=== PATIENT | female | born 1935 | race Caucasian/White ===

== ENCOUNTER 2021-04-24 10:59 | Emergency (ER) | payer MEDICARE, BC, SELFPAY ==
--- NOTE | ~2021-04-24 | XR_ITS ---
EXAMINATION: XR wrist LT min 3V EXAM DATE: 04/24/2021 11:32 INDICATION: left wrist pain after lifting boxes. TECHNIQUE: Left wrist frontal, frontal with ulnar deviation, oblique and lateral projections obtained and reviewed. Comparison is made to prior examination from 10/24/2018. FINDINGS: Left wrist scapholunate joint space is maintained. There is severe 1st carpometacarpal, mod erate triscaphe primary osteoarthritis. There is moderate 1st and 3rd MCP primary osteoarthritis. Th ere is severe widening of the triscaphe joint space on the ulnar deviation image, and subluxation on other images. There is a juxta-articular well-defined punched-out erosion at the head of the left 1st phalanx, gout not excludable. There are no acute fractures identified. Polyarticular interphalangeal osteoarthritis. IMPRESSION: 1. Triscaphe joint space subluxation and widening indicating age-indeterminate ligamentous laxity or injury. 2. 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 3. Well-defined erosion 1st metacarpal head, possibly gout. 4. No left wrist fracture. Reviewed, dictated and finalized at location B.
[2021-04-24 11:12] VITALS: BP 126/70; PULSE 86; RESP 20; TEMP 36.8; O2SAT 98
--- NOTE | 2021-04-24 11:41 | ED.UPPEXIN ---
HPI - Extremity Injury (Upper) General Chief Complaint: Extremity Injury, Upper Stated Complaint: left wrist pain Time Seen by Provider: 04/24/21 11:10 Source: patient and RN notes reviewed Mode of arrival: ambulatory Limitations: no limitations History of Present Illness HPI narrative: Patient presents today complaining of left wrist pain. She was helping a family member move yesterday and was carrying boxes. She started experiencing some tingling in her fingers as well. She currently rates her pain 8/10. She applied a heating pad last night and states this made her pain worse. She has not tried any ice or [id number] medication for symptoms prior to arrival. Pain increases with movement. MD complaint: injury to: left and wrist Related Data Home Medications Medication Instructions Recorded Confirmed aspirin 81 mg tablet,delayed 81 mg PO DAILY 02/13/21 04/24/21 release ergocalciferol (vitamin D2) 50 mcg 50 mcg PO DAILY 02/13/21 04/24/21 (2,000 unit) capsule hydrochlorothiazide 12.5 mg tablet 12.5 mg PO DAILY 02/13/21 04/24/21 losartan 50 mg tablet 50 mg PO DAILY 02/13/21 04/24/21 meloxicam 7.5 mg tablet 7.5 mg PO BID 02/13/21 04/24/21 omeprazole 40 mg capsule,delayed 40 mg PO DAILY 02/13/21 04/24/21 release simvastatin 10 mg tablet 10 mg PO DAILY 02/13/21 04/24/21 vitamin B complex 1 tablet PO DAILY 02/13/21 04/24/21 Allergies Allergy/AdvReac Type Severity Reaction Status Date / Time grass pollen Allergy Mild Congested Verified 04/24/21 11:01 Review of Systems Review of Systems: Narrative: CONSTITUTIONAL: Denies body aches, fever, chills, or sweats. EYES: Denies visual changes, redness, or discharge. ENT: Denies rhinorrhea, congestion, sore throat, or otalgia. CARDIOVASCULAR: Denies chest pain, palpitations, or edema. RESPIRATORY: Denies cough or dyspnea. GASTROINTESTINAL: Denies abdominal pain, nausea, vomiting, or diarrhea. GENITOURINARY: Denies dysuria or hematuria. SKIN: Denies rash, itching, or wounds. MUSCULOSKELETAL: Denies back pain, or myalgia. + Left wrist injury NEUROLOGIC: Denies headache, numbness, tingling, or weakness. PSYCH: Denies depression or anxiety. [facility] Past Medical History Medical History Arthritis of both knees History of cyst of breast 1979 Hypertension Osteoporosis Scoliosis Family History Family History Daughter Cancer Arthritis Son Kidney disease Social History Social History Gender identity (if verbalized by the patient): Female Comments At time of signature, I have reviewed and agree with nursing past medical, surgical, social and family history unless otherwise noted. Please see nursing chart for further information. There is no relevant family history pertinent to the presenting complaint Exam Narrative: Exam Narrative: GENERAL: Well-appearing, well-nourished, and in no acute distress. HEAD: Normocephalic, atraumatic. EYES: EOMI. No redness or drainage. Conjunctivae normal. ENT: Mucous membranes pink and moist. NECK: Normal AROM. CHEST: No respiratory distress. EXTREMITIES: Left wrist: Mild swelling about the wrist. No bony tenderness. Mild erythema noted to the volar surface of the proximal wrist. Pain increases most severely with extension and supination. Distal sensation intact. Capillary refill normal. Radial pulse normal. SKIN: Warm, dry, no rash. Capillary refill normal. Normal skin turgor. NEURO: No focal deficits. Alert and oriented x3. Gait steady. PSYCH: Normal affect. No signs of depression or anxiety. Course Vital Signs Vital signs: Vital Signs Temperature 98.2 F 04/24/21 11:12 Pulse Rate 86 04/24/21 11:12 Respiratory Rate 20 04/24/21 11:12 Blood Pressure 126/70 04/24/21 11:12 Pulse Oximetry 98 04/24/21 11:12 Te
== END 2021-04-24 11:50 | disposition home or self-care (01) ==
PROVIDERS: Emergency Provider Nurse Practitioner; PCP Nurse Practitioner Adult Health
DX: S63.502A Unspecified sprain of left wrist, initial encounter (principal); X50.0XXA Overexertion from strenuous movement or load, initial encounter; M17.0 Bilateral primary osteoarthritis of knee; I10 Essential (primary) hypertension; M81.0 Age-related osteoporosis without current pathological fracture; M41.9 Scoliosis, unspecified
CPT/HCPCS: 73110; 99213; G0463

== ENCOUNTER 2022-02-07 09:57 | Emergency (ER) | payer MEDICARE, BC, SELFPAY ==
--- NOTE | ~2022-02-07 | XR_ITS ---
EXAMINATION: XR hip BI 2V w AP pelvis DATE: 02/07/2022 11:05 INDICATION: Pelvic pain. Fall. TECHNIQUE: An anteroposterior view of the pelvis and 2 views of each hip were obtained. COMPARISON: Pelvis radiograph 06/17/2019 FINDINGS: There is dextroscoliosis and mild spondylosis of lumbar spine. No fracture. There is mild o steoarthritis of the hips. Osteitis pubis is noted. IMPRESSION: 1. Mild osteoarthritis of the hips. Reviewed, dictated and finalized at location A.
--- NOTE | ~2022-02-07 | CT_ITS ---
EXAMINATION: CT brain wo con DATE: 02/07/2022 10:55 INDICATION: Head injury TECHNIQUE: Computed tomography (CT) of the head was performed without intravenous contrast. The dose- length product was 605.33 mGy-cm. Automated exposure control and iterative reconstruction technique w ere employed. COMPARISON: No prior studies for comparison. FINDINGS: Mild atrophy. There are scattered mild periventricular and subcortical white matter changes , most likely related to small vessel ischemic disease (microangiopathy). No ventriculomegaly or midl ine shift. Basilar cisterns are patent. No depressed skull fractures. Paranasal sinuses and mastoids are pneumatized. IMPRESSION: 1. No acute intracranial abnormality. 2: Chronic age-related findings. Reviewed, dictated and finalized at location B.
--- NOTE | ~2022-02-07 | XR_ITS ---
EXAMINATION: XR chest 2V DATE: 02/07/2022 11:05 INDICATION: Dizziness. TECHNIQUE: Frontal and lateral views of the chest were obtained. COMPARISON: Chest single view 05/08/2014 FINDINGS: A calcified right lung nodule is consistent with old granulomatous disease. No pneumonia, p leural effusion, or pneumothorax. The heart size is normal. There are old healed fractures of the cla vicles. IMPRESSION: 1. No acute cardiopulmonary disease. Reviewed, dictated and finalized at location A.
[2022-02-07 10:00] VITALS: BP 152/69; PULSE 79; RESP 18; TEMP 36.2; O2SAT 99
--- NOTE | 2022-02-07 10:03 | ECG_ITS ---
Measurements Intervals [place] Rate: 75 P: 39 IA: 156 QRS: 72 QRSD: 131 T: 36 QT: 384 QTc: 430 Interpretive Statements SINUS RHYTHM RIGHT BUNDLE BRANCH BLOCK [120+ ms QRS DURATION, UPRIGHT V1, 40+ ms S IN I/aVL/V4/V5/V6] NO PREVIOUS ECG AVAILABLE FOR COMPARISON Electronically Signed On 02-07-2022 16:11:11 CDT by Rajiv Lange M.D.
[2022-02-07 10:18] LABS: Basophils Percent Auto 0.1 % (0.2-1.2); Eosinophils Percent Auto 0.5 % (0-4.4); Hematocrit 38.9 % (37.0-47.0); Hemoglobin 12.2 g/dL (12.0-15.0); Immature Granulocyte Absolute 0.02 K/mm3 (0.00-0.031); Immature Granulocyte Percent A 0.3 % (0-0.5); Lymphocytes Absolute Auto 0.86 K/mm3 (0.9-3.2); Lymphocytes Percent Auto 10.9 % (18.3-44.2); Mean Corpuscular HGB Conc 31.4 g/dl (32-36); Mean Corpuscular Hemoglobin 27.6 pg (26-34); Mean Platelet Volume 9.1 fl (7.4-10.4); Monocytes Absolute Auto 0.6 K/mm3 (0.1-0.6); Monocytes Percent Auto 7.3 % (2.6-8.5); Neutrophils Absolute Auto 6.4 K/mm3 (1.3-6.7); Neutrophils Percent Auto 80.9 % (45.5-73.1); Platelet Count Result 375 k/mm3 (150-375); Red Blood Count 4.42 M/mm3 (4.2-5.4); Red Cell Distribution Width 13.5 % (11.5-14.5); White Blood Count 7.9 K/mm3 (4.5-10.0)
[2022-02-07 10:28] LABS: Alanine Aminotransferase 14 U/L (4-35); Albumin Level 3.9 g/dL (3.5-5.1); Alkaline Phosphatase 84 U/L (38-126); Anion Gap 9 mmol/L (8-16); Aspartate Amino Transferase 37 U/L (14-36); Bilirubin,Total 0.5 mg/dL (0.2-1.3); Blood Urea Nitrogen 14 mg/dL (7-17); Calcium 8.7 mg/dL (8.4-10.2); Carbon Dioxide 22 mmol/L (22-30); Chloride 104 mmol/L (98-107); Estimated CRCL calculation 43 ml/min; Estimated Glomerular Filt Rate > 60; Glucose 106 mg/dL (65-110); Potassium 4.4 mmol/L (3.4-5.0); Sodium 135 mmol/L (137-145)
--- NOTE | 2022-02-07 10:48 | ED.DIZZY ---
HPI - Dizziness General Chief Complaint: Dizziness Stated Complaint: Dizzy Time Seen by Provider: 02/07/22 10:24 Source: patient Mode of arrival: EMS Limitations: no limitations History of Present Illness HPI Narrative: This is a 86 year old female that presents to the ER for episode of dizziness today. Reports she got up this morning and had some mild dizziness. She was able to continue to make a cup of coffee and watched some TV. She went into her room and started to feel worsening room spinning dizziness which made her fall. Reports she mostly able to lower herself to the floor. She did hit her head on a chest of drawers. Reports her dizziness has largely resolved. She now feels generally weak. Denies fever, vision changes, vomiting, numbness or weakness. Related Data Home Medications Medication Instructions Recorded Confirmed aspirin 81 mg tablet,delayed 81 mg PO DAILY 02/13/21 10/09/21 release hydrochlorothiazide 12.5 mg tablet 12.5 mg PO DAILY 02/13/21 10/09/21 losartan 50 mg tablet 50 mg PO DAILY 02/13/21 10/09/21 meloxicam 7.5 mg tablet 7.5 mg PO BID 02/13/21 10/09/21 simvastatin 10 mg tablet 10 mg PO DAILY 02/13/21 10/09/21 vitamin B complex 1 tablet PO DAILY 02/13/21 10/09/21 omeprazole 40 mg capsule,delayed 40 mg PO DAILY PRN 10/09/21 10/09/21 release Allergies Allergy/AdvReac Type Severity Reaction Status Date / Time grass pollen Allergy Mild Congested Verified 10/09/21 09:22 Review of Systems Review of Systems: CONSTITUTIONAL: Denies fever EYES: Denies visual changes CARDIOVASCULAR: Denies chest pain, palpitations RESPIRATORY: Denies dyspnea. GASTROINTESTINAL: Denies vomiting NEUROLOGIC: Denies numbness, or weakness. All systems reviewed & are unremarkable except as noted in HPI and below PMFSH Past Medical History Medical History Arthritis of both knees History of cyst of breast 1979 Hypertension Osteoporosis Scoliosis Family History Family History Daughter Cancer Arthritis Son Kidney disease Social History Social History (Updated 02/07/22 @ 10:53 by Camelia Cherry PA-C) Smoking status: Never smoker Gender identity (if verbalized by the patient): Female Exam Narrative: GENERAL: Well-appearing, well-nourished, and in no acute distress. HEAD: Normocephalic, atraumatic. EYES: PERRLA and EOMI. ENT: Nares clear, no rhinorrhea or epistaxis. Mucous membranes moist. Oropharynx without tonsillar hypertrophy exudate or other lesions. Bilateral TMs pearly lawson non-bulging NECK: Supple. No adenopathy or masses. No midline spinal tenderness CHEST: Clear to auscultation. No respiratory distress. No wheezes rales or rhonchi HEART: Regular rate and rhythm. No murmur heard. Normal peripheral pulses. BACK: No midline spinal tenderness EXTREMITIES: Normal range of motion. No edema or obvious deformity. SKIN: Warm, dry, no rash. NEURO: No focal deficits. Alert and oriented x3. Cranial nerves II through XII grossly intact. Normal [id number] PSYCH: Normal mood and affect Course Vital Signs Vital signs: Vital Signs Temperature 97.1 F L 02/07/22 10:00 Pulse Rate 79 02/07/22 10:00 Respiratory Rate 18 02/07/22 10:00 Blood Pressure 152/69 H 02/07/22 10:00 Pulse Oximetry 99 02/07/22 10:00 Temperature 97.1 F L 02/07/22 10:00 Pulse Rate 72 02/07/22 11:50 Respiratory Rate 19 02/07/22 11:50 Blood Pressure 136/60 02/07/22 11:50 Pulse Oximetry 94 02/07/22 11:50 MDM - Dizziness MDM Narrative Medical decision making narrative: Patient presents to the ER for an episode of dizziness today. Her vitals are stable. She is neurologically intact. CBC and metabolic panel without concerning findings. UA without evidence of infection. Chest x-ray without acute cardiopulmonary abnormality. EKG without concerning ST changes. Patient denies any chest p
[2022-02-07 10:59] LABS: Creatine Kinase 34 U/L (30-135)
[2022-02-07] MEDS: SODIUM CHLORIDE 0.9% IV 500 ML 999 ML IV CONT (11:47)
[2022-02-07] MEDS: ONDANSETRON INJ 4 MG/2 ML VIAL IV PUSH (11:48)
[2022-02-07] MEDS: MECLIZINE HCL 25 MG TABLET PO (11:48)
[2022-02-07 11:49] LABS: Add Urine Microscopic? YES; Appearance Urine Cloudy (Clear); Bilirubin Urine Negative (Negative); Blood Urine 1+ (Negative); Color Urine Yellow (Yellow); Glucose Urine UA Negative (Negative); Ketones Urine Negative (Negative); Leukocyte Esterase Ur Trace LEU/UL (Negative); Nitrate Urine Negative (Negative); Protein Urine Negative (Negative); Specific Grav Ur 1.012 (1.001-1.035); Squamous Epithelial Cell Urine Few /hpf (Few); WBC Urine 0-3 /hpf
[2022-02-07 11:50] VITALS: BP 136/60; PULSE 72; RESP 19; O2SAT 94
[2022-02-07 14:28] VITALS: BP 164/83; PULSE 83; RESP 13; TEMP 37; O2SAT 100
== END 2022-02-07 14:43 | disposition home or self-care (01) ==
PROVIDERS: Physician Assistant; Emergency Provider Emergency Medicine; PCP Nurse Practitioner Adult Health
DX: R42 Dizziness and giddiness (principal); M17.0 Bilateral primary osteoarthritis of knee; I10 Essential (primary) hypertension; M81.0 Age-related osteoporosis without current pathological fracture; M16.0 Bilateral primary osteoarthritis of hip; I45.10 Unspecified right bundle-branch block; Z79.82 Long term (current) use of aspirin
CPT/HCPCS: 36415; 70450; 71046; 73521; 80053; 81001; 82550; 85025; 93005; 96361; 96374; 99284; A9270; J2405; J7040

== ENCOUNTER 2022-03-26 09:16 | Observation (INO) | payer MEDICARE, BC, SELFPAY ==
[2022-03-26] VITALS (27 sets, daily range): BP systolic 130–177; BP diastolic 53–102; PULSE 68–84; RESP 13–20; TEMP 36.3–37.1; O2SAT 95–100; BMI 27.6
--- NOTE | ~2022-03-26 | XR_ITS ---
EXAMINATION: XR chest 2V DATE: 03/26/2022 12:07 INDICATION: Dizziness. Weakness. TECHNIQUE: Frontal and lateral views of the chest were obtained. COMPARISON: Chest 2 views 02/07/2022, CT abdomen and pelvis 06/09/2015 FINDINGS: There is interstitial pattern in the lungs. No pleural effusion or pneumothorax. The heart size is normal. There is an old healed fracture of left clavicle. IMPRESSION: 1. Interstitial pattern in the lungs, consistent with mild pulmonary edema versus mild atelectasis. Reviewed, dictated and finalized at location B. IMPRESSION: 1. Interstitial pattern in the lungs, consistent with mild pulmonary edema vers us mild atelectasis.
--- NOTE | ~2022-03-26 | CT_ITS ---
EXAMINATION: CT brain wo con DATE: 03/26/2022 11:02 INDICATION: Dizziness. TECHNIQUE: Computed tomography (CT) of the head was performed without intravenous contrast. The mA wa s adjusted according to patient size. Iterative reconstruction technique was employed. The dose-lengt h product was 605.33 mGy-cm. COMPARISON: Head CT 02/07/2022 FINDINGS: There are scattered areas of low attenuation in the cerebral white matter. There is no intr acranial hemorrhage, acute infarction, or abnormal intracranial mass lesion. The ventricles are richar l in size. There are likely changes of ocular lens replacement surgeries. There is mild mucosal thick ening in the ethmoid sinuses. There are trace mastoid effusions. IMPRESSION: 1. Stable moderate nonspecific cerebral white matter disease, which likely represents chronic small v essel ischemic disease. Reviewed, dictated and finalized at location B. IMPRESSION: 1. Stable moderate nonspecific cerebral white matter disease, which likely repr esents chronic small vessel ischemic disease.
--- NOTE | 2022-03-26 09:18 | ECG_ITS ---
Measurements Intervals [place] Rate: 60 P: 54 MI: 180 QRS: 79 QRSD: 138 T: 35 QT: 426 QTc: 429 Interpretive Statements SINUS RHYTHM RIGHT BUNDLE BRANCH BLOCK BASELINE ARTIFACT- II, III, AVF ABNORMAL ECG Electronically Signed On 03-26-2022 9:57:03 CDT by Humberto Aly D.O.
[2022-03-26 09:51] LABS: Basophils Percent Auto 0.2 % (0.2-1.2); Eosinophils Absolute Auto 0.1 K/mm3 (0-0.3); Eosinophils Percent Auto 0.8 % (0-4.4); Hematocrit 37.3 % (37.0-47.0); Hemoglobin 11.7 g/dL (12.0-15.0); Immature Granulocyte Absolute 0.03 K/mm3 (0.00-0.031); Immature Granulocyte Percent A 0.3 % (0-0.5); Lymphocytes Absolute Auto 1.12 K/mm3 (0.9-3.2); Lymphocytes Percent Auto 12.4 % (18.3-44.2); Mean Corpuscular HGB Conc 31.4 g/dl (32-36); Mean Corpuscular Hemoglobin 27.3 pg (26-34); Mean Corpuscular Volume 87.1 fl (80-100); Mean Platelet Volume 9.5 fl (7.4-10.4); Monocytes Absolute Auto 0.6 K/mm3 (0.1-0.6); Monocytes Percent Auto 6.5 % (2.6-8.5); Neutrophils Absolute Auto 7.2 K/mm3 (1.3-6.7); Neutrophils Percent Auto 79.8 % (45.5-73.1); Platelet Count Result 383 k/mm3 (150-375); Red Blood Count 4.28 M/mm3 (4.2-5.4); Red Cell Distribution Width 13.9 % (11.5-14.5)
[2022-03-26 10:01] LABS: Alanine Aminotransferase 11 U/L (4-35); Albumin Level 3.7 g/dL (3.5-5.1); Alkaline Phosphatase 89 U/L (38-126); Anion Gap 9 mmol/L (8-16); Aspartate Amino Transferase 24 U/L (14-36); Bilirubin,Total 0.2 mg/dL (0.2-1.3); Blood Urea Nitrogen 13 mg/dL (7-17); Calcium 8.8 mg/dL (8.4-10.2); Carbon Dioxide 23 mmol/L (22-30); Chloride 104 mmol/L (98-107); Estimated CRCL calculation 43 ml/min; Estimated Glomerular Filt Rate > 60; Glucose 118 mg/dL (65-110); Potassium 4.1 mmol/L (3.4-5.0); Sodium 136 mmol/L (137-145)
--- NOTE | 2022-03-26 10:31 | ED.DIZZY ---
HPI - Dizziness General Chief Complaint: Dizziness Stated Complaint: dizzy Time Seen by Provider: 03/26/22 10:10 History of Present Illness HPI Narrative: 86-year-old female presents to the emergency room cute onset of dizziness that began this morning when she woke up. Patient states that dizziness is worse with movement. Denies injury or trauma. Denies nausea vomiting. Denies vision or hearing changes. Patient also complains of increased weakness. Patient states that she was seen here in the emergency room in January for same complaint. Patient was given meclizine at that time which she says helped her symptoms. Patient states that she refuses to take any more meclizine because she read on the adverse reactions of the medication that it could cause dizziness, and she is afraid that her dizziness will be made worse with the meclizine. Patient is under the care of a neurologist at this time. Patient also reports that she was abruptly taken off of primidone over a month ago, and her neurologist is slowly increasing her dose over the last couple of weeks. Patient states that the primidone may be causing her dizziness as well Related Data Home Medications Medication Instructions Recorded Confirmed aspirin 81 mg tablet,delayed 81 mg PO DAILY 02/13/21 10/09/21 release hydrochlorothiazide 12.5 mg tablet 12.5 mg PO DAILY 02/13/21 10/09/21 losartan 50 mg tablet 50 mg PO DAILY 02/13/21 10/09/21 meloxicam 7.5 mg tablet 7.5 mg PO BID 02/13/21 10/09/21 simvastatin 10 mg tablet 10 mg PO DAILY 02/13/21 10/09/21 vitamin B complex 1 tablet PO DAILY 02/13/21 10/09/21 omeprazole 40 mg capsule,delayed 40 mg PO DAILY PRN 10/09/21 10/09/21 release Allergies Allergy/AdvReac Type Severity Reaction Status Date / Time grass pollen Allergy Mild Congested Verified 03/26/22 09:29 Review of Systems Review of Systems: CONSTITUTIONAL: Denies fever, chills, or sweats. EYES: Denies visual changes, redness, or discharge. ENT: Denies rhinorrhea, congestion, sore throat, or otalgia. CARDIOVASCULAR: Denies chest pain, palpitations, or edema. RESPIRATORY: Denies cough or dyspnea. GASTROINTESTINAL: Denies abdominal pain, nausea, vomiting, or diarrhea. GENITOURINARY: Denies dysuria or hematuria. SKIN: Denies rash or itching. MUSCULOSKELETAL: Denies back pain, joint pain, or myalgia. NEUROLOGIC: Reports dizziness and weakness PSYCHIATRIC: Denies anxiety or depression. [facility] Past Medical History Medical History Arthritis of both knees History of cyst of breast 1979 Hypertension Osteoporosis Scoliosis Family History Family History Daughter Cancer Arthritis Son Kidney disease Social History Social History Smoking status: Never smoker Gender identity (if verbalized by the patient): Female Exam Narrative: GENERAL: Well-appearing, well-nourished, and in no acute distress. HEAD: Normocephalic, atraumatic. EYES: PERRLA and EOMI. CHEST: Clear to auscultation. No respiratory distress. No wheezes rales or rhonchi HEART: Regular rate and rhythm. No murmur heard. Normal peripheral pulses. ABDOMEN: Soft, nontender, nondistended, normal active bowel sounds. EXTREMITIES: Normal range of motion. No edema. SKIN: Warm, dry, no rash. NEURO: No focal deficits. Alert and oriented x3. Cranial nerves II through XII grossly intact. PSYCH: Normal mood and affect. Course Vital Signs Vital signs: Vital Signs Temperature 36.3 C L 03/26/22 09:22 Pulse Rate 68 03/26/22 09:22 Respiratory Rate 14 03/26/22 09:22 Blood Pressure 169/67 H 03/26/22 09:22 Pulse Oximetry 100 03/26/22 09:22 Temperature 36.3 C L 03/26/22 09:22 Pulse Rate 83 03/26/22 11:55 Respiratory Rate 16 03/26/22 11:55 Blood Pressure 158/102 H 03/26/22 11:55 Pulse Oximetry 98 03/26/22 11:55
[2022-03-26] MEDS: MECLIZINE HCL 25 MG TABLET PO (10:41)
[2022-03-26] MEDS: SODIUM CHLORIDE 0.9% IV 1,000 ML 999 ML IV CONT (10:43)
[2022-03-26 12:47] LABS: Troponin I < 0.012 ng/mL (0.000-0.034)
[2022-03-26 14:21] LABS: SARS-CoV-2 RNA PCR Negative
--- NOTE | 2022-03-26 14:43 | PC.NURSE ---
This patient, Joann Mckinley, was admitted to [facility]. Patient/family oriented to hospital policies and general routines including ID bracelet, bed and alarms, visiting hours, pain management, procedures, bathroom and other care routines, personal items, smoking policy, room service/diet, and visiting hours. Information on how to activate the Rapid Response Team has been discussed. Patient/Family are encouraged to report perceived risks to care and to ask questions if they do not understand what they are told or what they should do.
--- NOTE | 2022-03-26 15:36 | PC.NURSE ---
reported elevated bp to [facility] provider, pt didn't take losartan 50 mg po /
[2022-03-26 16:19] LABS: Troponin I < 0.012 ng/mL (0.000-0.034)
[2022-03-26] MEDS: LOSARTAN POTASSIUM 50 MG TABLET PO (16:21)
[2022-03-26] MEDS: ACETAMINOPHEN 325 MG TABLET 650 MG PO (18:54)
--- NOTE | 2022-03-26 23:15 | PM.IMHP ---
H&P: HPI History of Present Illness Date/Time: Greater than 30 minutes spent reviewing chart, evaluating, treating, counseling patient. Anticipate patient will be admitted for less than 48 hours, will admit under observation. 03/26/22 23:15 86 yo F PMHx of HTN, essential tremors. Presents with dizziness. States this started in January; had an episode of dizziness while getting ready in the AM when all of a sudden she felt like she was spinning. Was so bad that she fell. She went to the ED at that time and was given meclizine, which she states helped. Patient went to sweet pickled fruit maker more meclizine from the pharmacy, but after the reading the package insert she decided not to take it because it could potentially make her dizziness worse. Patient has been evaluated by her PCP in the past, and they suspected potentially her primidone may be causing her dizziness. Today patient was laying in bed when she began to feel dizzy like her head was spinning. She states this improved slightly, but then when she went to get coffee in her kitchen she had another spell. She then had another spell when going to the couch, which prompted her to come to the ED. Patient denies fevers/chills, CP, palpitations, SOB, n/v/d/c, dysuria, hematuria, blood in stool. Denies blurry vision or change in vision. Denies ear pain, drainage, tinnitus, difficulty hearing. Denies sore throat. In ED labs unremarkable. Head CT showing stable nonspecific cerebral white matter disease c/w chronic small vessel ischemic disease. Patient was given 1 L NS bolus. Chief Complaint: Dizziness Review of Systems Review of Systems: 10 point ROS completed, negative unless otherwise specified per HPI [facility] Past Medical History Medical History (Updated 03/26/22 @ 23:29 by Paul Alamo DO) Arthritis of both knees History of cyst of breast 1979 Hypertension Osteoporosis Scoliosis Family History Family History Daughter Cancer Arthritis Son Kidney disease Social History Social History Smoking status: Never smoker Alcohol intake: never Substance use: never Gender identity (if verbalized by the patient): Female Spiritual care concerns: No Meds Home Medications and Allergies Home Medications Medication Instructions Recorded Confirmed Type aspirin 81 mg tablet,delayed 81 mg PO DAILY 02/13/21 03/26/22 History release losartan 50 mg tablet 50 mg PO DAILY 02/13/21 03/26/22 History simvastatin 10 mg tablet 10 mg PO DAILY 02/13/21 03/26/22 History omeprazole 40 mg capsule,delayed 40 mg PO DAILY PRN 10/09/21 03/26/22 History release celecoxib 200 mg PO DAILY 03/26/22 03/26/22 History cyanocobalamin (vitamin B-12) 1,000 mcg PO DAILY 03/26/22 03/26/22 History meclizine 25 mg PO TID PRN 03/26/22 03/26/22 History primidone 50 mg PO DAILY 03/26/22 03/26/22 History Allergies Allergy/AdvReac Type Severity Reaction Status Date / Time grass pollen Allergy Mild Congested Verified 03/26/22 09:29 Vital Signs Vital Signs - 24 hr 03/26/22 09:22 03/26/22 09:41 03/26/22 09:45 Temperature 97.4 F L Pulse Rate 68 70 73 Respiratory Rate 14 20 17 Blood Pressure 169/67 H Pulse Oximetry 100 100 98 03/26/22 09:47 03/26/22 10:00 03/26/22 10:02 Temperature Pulse Rate 68 72 78 Respiratory Rate 17 13 13 Blood Pressure 140/67 139/86 Pulse Oximetry 99 99 95 03/26/22 10:15 03/26/22 10:17 03/26/22 10:30 Temperature Pulse Rate 74 75 71 Respiratory Rate 17 14 19 Blood Pressure 145/75 H Pulse Oximetry 97 96 100 03/26/22 10:32 03/26/22 11:06 03/26/22 11:55 Temperature Pulse Rate 70 80 83 Respiratory Rate 14 16 Blood Pressure 166/69 H 158/102 H Pulse Oximetry 99 97 98 03/26/22 12:16 03/26/22 12:30 03/26/22 12:45 Temperature Pulse Rate 76 80 79 Respiratory Rate 17 17 15 Blood Pressure Pulse Oximetry 99 100 99 03/26/22
[2022-03-27] VITALS (12 sets, daily range): BP systolic 142–175; BP diastolic 58–79; PULSE 73–81; RESP 16–19; TEMP 36–37.1; O2SAT 96–97
--- NOTE | 2022-03-27 | ECHO_ITS ---
Patient Info Name: Joann Mckinley Age: 86 years : 1935 Gender: Female Ht: 60 in Wt: 141 lbs BSA: 1.67 m2 HR: 71 bpm BP: 142 / 58 mmHg Heart Rhythm: Sinus Rhythm Technical Quality: Fair Exam Date: 03/27/2022 8:38 AM Exam Location: [facility] Pulmonary Patient Status: Outpatient Admit Date: 03/26/2022 Staff Ordering Physician: Paul Alamo DO Route Agent: Tere Nguyen RDCS Attending Provider: Fab Reddy M.A., MD Exam Type: CA echo doppler color flow Study Info Indications R42 - Dizziness and giddiness Complete two-dimensional, color flow and Doppler transthoracic echocardiogram is performed. Strain analysis performed. Summary 1. Complete two-dimensional, color flow and Doppler transthoracic echocardiogram is performed. 2. Strain analysis performed. 3. Left ventricular chamber dimension is normal. 4. Left ventricular systolic function is normal, estimated at 65-70%. 5. There is no increased left ventricular wall thickness. 6. The left ventricular diastolic function is grade I diastolic dysfunction. 7. Global longitudinal strain is normal at -19 %. 8. Left atrial chamber dimension is mildly enlarged. 9. There is mild aortic valve regurgitation. 10. There is mild mitral valve regurgitation. 11. There is mild tricuspid valve regurgitation. 12. Mild pulmonary hypertension, estimated pulmonary arterial systolic pressure is 39 mmHg. Left Ventricle Left ventricular chamber dimension is normal. Left ventricular systolic function is normal, estimated at 65-70%. There is no increased left ventricular wall thickness. The left ventricular diastolic function is grade I diastolic dysfunction. Global longitudinal strain is normal at -19 %. Right Ventricle Right ventricular chamber dimension is normal. Right ventricular systolic function is normal. Left Atria Left atrial chamber dimension is mildly enlarged. Right Atria Right atrial chamber dimension is normal. Atrial Septum Intact interatrial septum visualized by color flow imaging. Aortic Valve The aortic valve is trileaflet. There is mild aortic valve sclerosis. There is no aortic valve stenosis. There is mild aortic valve regurgitation. Pulmonic Valve The pulmonic valve is normal. There is no pulmonic valve stenosis. There is trace pulmonic regurgitation. Mitral Valve The mitral valve has normal leaflets. There is no mitral valve stenosis. There is mild mitral valve regurgitation. Tricuspid Valve The tricuspid valve leaflets are normal. There is no significant tricuspid valve stenosis. There is mild tricuspid valve regurgitation. Mild pulmonary hypertension, estimated pulmonary arterial systolic pressure is 39 mmHg. Pericardium/Pleural The pericardium appears normal. There is no pericardial effusion. Inferior Vena Cava Normal inferior vena cava with <50% collapse upon inspiration consistent with elevated right atrial pressure, 10 mmHg. Aorta The aortic root size at the sinus of Valsalva is normal. Left Ventricular Outflow Tract Name Value Normal LVOT 2D LVOT Diameter 1.9 cm LVOT Doppler LVOT
[2022-03-27 06:36] LABS: Basophils Percent Auto 0.2 % (0.2-1.2); Eosinophils Absolute Auto 0.1 K/mm3 (0-0.3); Hematocrit 38.4 % (37.0-47.0); Hemoglobin 11.9 g/dL (12.0-15.0); Immature Granulocyte Absolute 0.02 K/mm3 (0.00-0.031); Immature Granulocyte Percent A 0.3 % (0-0.5); Lymphocytes Absolute Auto 1.43 K/mm3 (0.9-3.2); Lymphocytes Percent Auto 22.4 % (18.3-44.2); Mean Corpuscular Hemoglobin 27.3 pg (26-34); Mean Corpuscular Volume 88.1 fl (80-100); Mean Platelet Volume 9.2 fl (7.4-10.4); Monocytes Absolute Auto 0.5 K/mm3 (0.1-0.6); Monocytes Percent Auto 8.2 % (2.6-8.5); Neutrophils Absolute Auto 4.3 K/mm3 (1.3-6.7); Neutrophils Percent Auto 66.9 % (45.5-73.1); Platelet Count Result 361 k/mm3 (150-375); Red Blood Count 4.36 M/mm3 (4.2-5.4); Red Cell Distribution Width 13.8 % (11.5-14.5); White Blood Count 6.4 K/mm3 (4.5-10.0)
[2022-03-27 06:57] LABS: Alanine Aminotransferase 11 U/L (4-35); Albumin Level 3.7 g/dL (3.5-5.1); Alkaline Phosphatase 81 U/L (38-126); Anion Gap 6 mmol/L (8-16); Aspartate Amino Transferase 23 U/L (14-36); Bilirubin,Total 0.2 mg/dL (0.2-1.3); Blood Urea Nitrogen 11 mg/dL (7-17); Calcium 8.7 mg/dL (8.4-10.2); Carbon Dioxide 24 mmol/L (22-30); Chloride 108 mmol/L (98-107); Estimated CRCL calculation 38 ml/min; Estimated Glomerular Filt Rate > 60; Glucose 102 mg/dL (65-110); Sodium 138 mmol/L (137-145)
[2022-03-27] MEDS: LOSARTAN POTASSIUM 50 MG TABLET PO (09:36)
[2022-03-27] MEDS: CYANOCOBALAMIN 1,000 MCG TABLET 1000 MCG PO (09:36)
[2022-03-27] MEDS: CELECOXIB 200 MG CAPSULE PO (09:36)
[2022-03-27] MEDS: ACETAMINOPHEN 325 MG TABLET 650 MG PO (09:36)
[2022-03-27] MEDS: ENOXAPARIN 40 MG/0.4 ML SYRINGE SUB-Q (09:37)
[2022-03-27] MEDS: PRIMIDONE 25 MG TABLET PO (09:37)
[2022-03-27] MEDS: SIMVASTATIN 10 MG TABLET PO (09:37)
--- NOTE | 2022-03-27 09:40 | PC.NURSE ---
pt takes aspirin at bedtime at home and would like to take it that way here, message left for pharm
--- NOTE | 2022-03-27 11:15 | PM.IMPN ---
Progress Note: A&P Assessment and Plan (1) Dizziness: Code(s): R42 - Dizziness and giddiness Status: Acute Assessment and Plan: ECHO pending Telemonitor shows SR with PVCs orthostatic ordered Laying, sitting, standing TSH 3.130 ENT c/s however, they are not here this week, will need an outpatient appointment at discharge Meclizine prn Decrease primidone dose as well Right ear irrigation performed, wax built up (2) Hypertension: Code(s): I10 - Essential (primary) hypertension Status: Inactive Assessment and Plan: Current BP 142/58 Continue losartan Trend Blood pressure Adjust therapy as indicated (3) Essential tremor: Code(s): G25.0 - Essential tremor Status: Acute Assessment and Plan: Continue primidone at reduced dose. Monitor for symptoms Time Spent With Patient Time with patient: Greater than 35 minutes Subjective Date/time seen: 03/27/22 11:15 Interval history: 03/26/22 23:15 86 yo F PMHx of HTN, essential tremors. Presents with dizziness. States this started in January; had an episode of dizziness while getting ready in the AM when all of a sudden she felt like she was spinning. Was so bad that she fell. She went to the ED at that time and was given meclizine, which she states helped. Patient went to bean picker more meclizine from the pharmacy, but after the reading the package insert she decided not to take it because it could potentially make her dizziness worse. Patient has been evaluated by her PCP in the past, and they suspected potentially her primidone may be causing her dizziness. Today patient was laying in bed when she began to feel dizzy like her head was spinning. She states this improved slightly, but then when she went to get coffee in her kitchen she had another spell. She then had another spell when going to the couch, which prompted her to come to the ED. Patient denies fevers/chills, CP, palpitations, SOB, n/v/d/c, dysuria, hematuria, blood in stool. Denies blurry vision or change in vision. Denies ear pain, drainage, tinnitus, difficulty hearing. Denies sore throat. In ED labs unremarkable. Head CT showing stable nonspecific cerebral white matter disease c/w chronic small vessel ischemic disease. Patient was given 1 L NS bolus. 03/27/22 11:15 Patient stated that she was feeling tired. She also stated that her head movements did not make a difference when she was getting dizzy. She did state that she gets dizzy with any major movement. She also states that she usually sits back and relaxes which that helps clear it up. She stated that she has been having dizziness which is worse since January. Patient stated she has been tired lately. However she denies any chest pain, shortness her breath, nausea, vomiting, diarrhea, constipation, weakness or fatigue. I did look into the patient's ears which showed she did have right-sided blockage. I did irrigate the patient's ear and her dizziness seems to be better. Review of Systems Review of Systems: All systems reviewed & are unremarkable except as noted in HPI and below Exam Const: General: cooperative, healthy appearing, no acute distress, well developed, alert and awake Nutritional Appearance: well nourished Orientation/consciousness: patient oriented x3 Limitations: no limitations HENMT: Head: normal to inspection Ears: hearing grossly normal bilaterally General nose exam: Normal external nose present Mouth: Yes Normal oral and palatal mucosa present, Yes lip normal and Yes tongue normal Teeth and gingiva: abnormal tooth and associated gingiva and poor dentition Eyes: General: appearance normal, both eyes and all related structures Neck: Neck: normal visual inspection, full ROM, trachea midline and supple Chest: Chest palpation & inspection: normal inspection of the chest Resp: Effort & Inspection: normal respiratory effort and able to speak in
--- NOTE | 2022-03-27 15:29 | PCCCNOTE ---
On 03/27/22, the student, [Savita Greenfield], provided care and completed [facility] documentation on this patient. I have reviewed the student's documentation and agree with the findings.
[2022-03-27] MEDS: ASPIRIN 81 MG ENTERIC TABLET PO (20:50)
[2022-03-28] VITALS: PULSE 77
[2022-03-28 04:00] VITALS: PULSE 71
[2022-03-28 06:00] VITALS: BP 165/79; PULSE 77; RESP 18; TEMP 36.6; O2SAT 98
[2022-03-28 07:05] LABS: Basophils Percent Auto 0.2 % (0.2-1.2); Eosinophils Absolute Auto 0.2 K/mm3 (0-0.3); Eosinophils Percent Auto 2.6 % (0-4.4); Hemoglobin 11.3 g/dL (12.0-15.0); Immature Granulocyte Absolute 0.02 K/mm3 (0.00-0.031); Immature Granulocyte Percent A 0.3 % (0-0.5); Lymphocytes Absolute Auto 1.26 K/mm3 (0.9-3.2); Lymphocytes Percent Auto 19.3 % (18.3-44.2); Mean Corpuscular HGB Conc 31.4 g/dl (32-36); Mean Corpuscular Hemoglobin 27.2 pg (26-34); Mean Corpuscular Volume 86.7 fl (80-100); Mean Platelet Volume 9.4 fl (7.4-10.4); Monocytes Absolute Auto 0.5 K/mm3 (0.1-0.6); Neutrophils Absolute Auto 4.6 K/mm3 (1.3-6.7); Neutrophils Percent Auto 69.6 % (45.5-73.1); Platelet Count Result 332 k/mm3 (150-375); Red Blood Count 4.15 M/mm3 (4.2-5.4); Red Cell Distribution Width 13.6 % (11.5-14.5); White Blood Count 6.5 K/mm3 (4.5-10.0)
[2022-03-28 07:19] LABS: Alanine Aminotransferase 8 U/L (4-35); Albumin Level 3.5 g/dL (3.5-5.1); Alkaline Phosphatase 74 U/L (38-126); Anion Gap 7 mmol/L (8-16); Aspartate Amino Transferase 22 U/L (14-36); Bilirubin,Total 0.2 mg/dL (0.2-1.3); Blood Urea Nitrogen 13 mg/dL (7-17); Calcium 8.5 mg/dL (8.4-10.2); Carbon Dioxide 24 mmol/L (22-30); Chloride 107 mmol/L (98-107); Estimated CRCL calculation 43 ml/min; Estimated Glomerular Filt Rate > 60; Glucose 91 mg/dL (65-110); Potassium 3.9 mmol/L (3.4-5.0); Sodium 138 mmol/L (137-145)
[2022-03-28 08:00] VITALS: BP 142/78; BP 148/71; PULSE 77; PULSE 78; PULSE 85; RESP 18; TEMP 36.4; O2SAT 94; O2SAT 99
[2022-03-28 08:05] VITALS: BP 157/81; PULSE 91; RESP 18; TEMP 36.4; O2SAT 98
[2022-03-28] MEDS: LOSARTAN POTASSIUM 50 MG TABLET PO (08:28)
[2022-03-28] MEDS: PRIMIDONE 25 MG TABLET PO (08:28)
[2022-03-28] MEDS: CYANOCOBALAMIN 1,000 MCG TABLET 1000 MCG PO (08:28)
[2022-03-28] MEDS: CELECOXIB 200 MG CAPSULE PO (08:29)
[2022-03-28] MEDS: SIMVASTATIN 10 MG TABLET PO (08:29)
--- NOTE | 2022-03-28 10:30 | PM.DS ---
DS: Admitting Diagnosis Discharge Date 03/28/22 1030 Admitting Diagnosis Dizziness DS: Discharge Diagnosis Discharge Diagnosis (1) Dizziness: Code(s): R42 - Dizziness and giddiness Status: Acute Assessment and Plan: ECHO EF of 60-70% and grade 1 diastolic dysfunction Telemonitor shows SR with PVCs orthostatic ordered Laying 161/65, sitting 161/73, standing 175/79 TSH 3.130 ENT c/s however, they are not here this week, outpatient appointment obtained Meclizine prn Decrease primidone dose as well Right ear irrigation performed, wax built up (2) Hypertension: Code(s): I10 - Essential (primary) hypertension Status: Inactive Assessment and Plan: Current BP 163/76 Continue losartan Trend Blood pressure Adjust therapy as indicated (3) Essential tremor: Code(s): G25.0 - Essential tremor Status: Acute Assessment and Plan: Continue primidone at reduced dose. Monitor for symptoms DS: Summary Hospital Course Hospital Course: Patient is an 86-year-old female with a past medical history of hypertension, central tumors, arthritis who presented to the ED complaints dizziness. Orthostatic blood pressures were performed and showed orthostatic hypertension. Echo was done and showed an EF of 65-70% with grade 1 diastolic dysfunction, head CT was performed and showed no acute abnormality at this time TSH was 3.130. Upon reviewing patient's ear right ear was noted to have wax buildup and ear was irrigated. Labs have been stable throughout the entire admission. Patient has been a little hypertensive which is probably due to being hospitalized. ENT was consulted however they are not here this week. Outpatient appointment was made and patient has an appointment on Thursday at 2:30 p.m. for follow-up with Dr. Figueroa. Patient was given some fluids. Patient is stable for discharge. Today patient states she has a little bit dizziness however it is tolerable. She also states that she has weakness to bilateral lower extremities however that usually resolves after she gets moving for the day. Education about position changes and taking a break between each position was given and patient verbalized understanding. Patient denies any chest pain, palpitations, fevers, sweats, chills, shortness of breath, nausea, vomiting, diarrhea, constipation, dysuria or visual changes. Patient is stable for discharge at this time. Labs and vital signs are also stable. Upon viewing patient's inner ear today the right ear does have a little bit of bleeding. Status at Discharge Functional status at discharge: uses cane/walker Overall status at discharge: patient is progressing back to baseline Time Spent with Patient Time attestation: Total time spent providing and/or coordinating discharge services: 32 minutes Time spent: Greater than 30 minutes Specific discharge activities: Diagnostic testing, chart review, developing a treatment plan, education, care coordination documentation, physical exam, result review Exam Const: General: cooperative, healthy appearing, no acute distress, well developed, alert and awake Nutritional Appearance: well nourished Orientation/consciousness: patient oriented x3 Limitations: no limitations HENMT: Head: normal to inspection Ears: TM's normal bilaterally and other (slight bleeding in external ear canal ) General nose exam: Normal external nose present Mouth: Yes Normal oral and palatal mucosa present, Yes lip normal, Yes tongue normal and Yes moist mucous membranes Teeth and gingiva: abnormal tooth and associated gingiva and poor dentition Other: [place]-Hallpike test negative Eyes: General: appearance normal, both eyes and all related structures Pupils: Equal, round and reactive pupils present EOM: EOMs intact bilaterally (no horizontal or vertical nystagmus) Neck: Neck: normal visual inspection, full ROM, trachea midline and supple Chest
[2022-03-28 12:00] VITALS: PULSE 76
--- NOTE | 2022-03-28 14:36 | WPDCN ---
Assessment and Plan Assessment and plan (1) Dizziness: Code(s): R42 - Dizziness and giddiness Status: Acute Assessment and Plan: the patient can follow up with me if needed. I would like the patient to discuss with her PCP cardiac carotid electrolyte blood count and medical issues which can lead to orthostasis /imbalance / lightheadedness. If the patient has any persistent imbalance /vertigo / dizziness I would like her follow-up with me. Patient voiced understanding and agreed. A bladder symptoms have resolved. (2) Imbalance: Code(s): R26.89 - Other abnormalities of gait and mobility Status: Acute (3) Vertigo: Code(s): R42 - Dizziness and giddiness Status: Acute HPI Data of Consult Date/Time: 03/28/22 14:36 Requesting Physician: Fab Reddy MD Primary Care Provider: Daisy Phipps, SAWYER HELPER Consult Narrative Narrative: Joann Mckinley is a 86 year old female With an episode of dizziness following over to her several days ago workup negative thus far. Patient reports feeling better now. History of cerumen on the right side. Cleaned out during this hospital admission. Review of Systems Review of Systems: All systems reviewed & are unremarkable except as noted in HPI and below PMFSH Past Medical History Medical History (Updated 03/28/22 @ 14:47 by Guillermo Figueroa MD) Arthritis of both knees History of cyst of breast 1979 Hypertension Osteoporosis Scoliosis Family History Family History Daughter Cancer Arthritis Son Kidney disease Social History Social History Smoking status: Never smoker Alcohol intake: never Substance use: never Gender identity (if verbalized by the patient): Female Spiritual care concerns: No Meds Home Medications and Allergies Home Medications Medication Instructions Recorded Confirmed Type aspirin 81 mg tablet,delayed 81 mg PO DAILY 02/13/21 03/26/22 History release losartan 50 mg tablet 50 mg PO DAILY 02/13/21 03/26/22 History simvastatin 10 mg tablet 10 mg PO DAILY 02/13/21 03/26/22 History omeprazole 40 mg capsule,delayed 40 mg PO DAILY PRN 10/09/21 03/26/22 History release celecoxib 200 mg PO DAILY 03/26/22 03/26/22 History cyanocobalamin (vitamin B-12) 1,000 mcg PO DAILY 03/26/22 03/26/22 History meclizine 25 mg PO TID PRN 03/26/22 03/26/22 History primidone 50 mg PO DAILY 03/26/22 03/26/22 History Allergies Allergy/AdvReac Type Severity Reaction Status Date / Time grass pollen Allergy Mild Congested Verified 03/26/22 09:29 Vital Signs Vital Signs - 24 hr 03/27/22 16:00 03/27/22 16:20 03/27/22 20:00 Temperature 37.1 C 36.0 C L Pulse Rate 81 76 77 Respiratory Rate 16 18 Blood Pressure 165/74 H 161/65 H Pulse Oximetry 97 97 03/27/22 20:03 03/27/22 20:04 03/27/22 22:00 Temperature 36.5 C Pulse Rate 78 78 79 Respiratory Rate 19 Blood Pressure 161/73 H 175/79 H 163/76 H Pulse Oximetry 97 03/28/22 00:00 03/28/22 04:00 03/28/22 06:00 Temperature 36.6 C Pulse Rate 77 71 77 Respiratory Rate 18 Blood Pressure 165/79 H Pulse Oximetry 98 03/28/22 08:00 03/28/22 08:05 03/28/22 12:00 Temperature 36.4 C L 36.4 C L Pulse Rate 77 91 76 Respiratory Rate 18 18 Blood Pressure 142/78 H 157/81 H Pulse Oximetry 99 98 Exam HENMT: Other: Normal EACs left TM sclerotic aerated middle ear right EAC blood in it no wax TM normal aerated middle ear normal nasal passages normal oral cavity normal head neck examination otherwise. Results Labs CBC & Chem 7: 03/28/22 06:18 03/28/22 06:18 Labs: Short CBC 03/28/22 Range/Units 06:18 WBC 6.5 (4.5-10.0) K/mm3 Hgb 11.3 L (12.0-15.0) g/dL Hct 36.0 L (37.0-47.0) % Plt Count 332 (150-375) k/mm3 BMP 03/28/22 06:18 Sodium 138 Potassium 3
--- NOTE | 2022-03-28 14:47 | PCCCNOTE ---
On 03/28/22, the student, [Janice Greenfield], provided care and completed [facility] documentation on this patient. I have reviewed the student's documentation and agree with the findings.
== END 2022-03-28 15:25 | disposition home or self-care (01) ==
LOC: ANHED 13:13 → ANH3MEDSUR 03-27 11:48
PROVIDERS: Emergency Medicine; Internal Medicine; Admitting Provider Internal Medicine; Emergency Provider Nurse Practitioner Family; PCP Nurse Practitioner Adult Health; Visit Provider Nurse Practitioner
DX: R42 Dizziness and giddiness (principal); I10 Essential (primary) hypertension; G25.0 Essential tremor; M81.0 Age-related osteoporosis without current pathological fracture; M41.9 Scoliosis, unspecified; M17.0 Bilateral primary osteoarthritis of knee; Z20.822 Contact with and (suspected) exposure to COVID-19
CPT/HCPCS: 36415; 70450; 71046; 80053; 84443; 84484; 85025; 93005; 93306; 96360; 96372; 97161; 97165; 99285; A9270; C9803; G0378; J1650; J7030; U0003; U0005

== ENCOUNTER 2022-04-07 13:42 | Outpatient (CLI) | payer MEDICARE, BC, SELFPAY ==
--- NOTE | ~2022-04-07 | US_ITS ---
EXAMINATION: US carotid duplex BI DATE: 04/07/2022 14:39 INDICATION: Dizziness, giddiness and unsteadiness TECHNIQUE: Grayscale, color Doppler, and pulsed Doppler images of the cervical carotid arteries were obtained. The degree of vessel stenosis is placed in one of the following categories: normal, <50%, 5 0-69%, >=70% but less than near-occlusion, near-occlusion, or total occlusion. Note that percent sten osis relative to normal distal artery lumen diameter is indirectly measured from velocity measurement s as described by Ismael, et al. Radiology 2003; 229:340-346. Notes: Normal: Peak systolic velocity <125 centimeters/sec and no plaque <50%. Peak systolic velocity <125 ( EDV <40; ICA/CCA PSV ratio <2.0; used these factors only a tandem lesions or low cardiac output or co ntralateral disease) 50-69 %: PSV 125-230 (EDV 40-100; ratio 2-4) >= 70% but less than near occlusion: PSV greater than 230 (EDV > 100; ratio> 4.0) Near Occlusion: PSV that is variable; markedly narrowed lumen Occlusion: Absent flow on color/spectral Doppler and no lumen on lawson scale. COMPARISON: None. FINDINGS: RIGHT: The right common carotid artery (CCA) peak systolic velocity (PSV) is 96 cm/s. The right internal car otid artery (ICA) PSV is 80 cm/s. The right ICA end-diastolic velocity (EDV) is 20 cm/s. The right IC A/CCA PSV ratio is 0.8. The external carotid artery (ECA) PSV is 81 cm/s. There is antegrade flow in the right vertebral artery. LEFT: The left CCA PSV is 91 cm/s. The left ICA PSV is 74 cm/s. The left ICA EDV is 19 cm/s. The left ICA/C CA PSV ratio is 0.8. The ECA PSV is 74 cm/s. There is antegrade flow in the left vertebral artery. IMPRESSION: 1. Less than 50% stenosis in the right internal carotid artery by sonographic criteria. 2. Less than 50% stenosis in the left internal carotid artery by sonographic criteria. Reviewed, dictated and finalized at location A. IMPRESSION: 1. Less than 50% stenosis in the right internal carotid artery by sonographic c shannan. 2. Less than 50% stenosis in the left internal carotid artery by sonographic bisi elizabeth.
== END 2022-04-07 13:43 | disposition home or self-care (01) ==
PROVIDERS: PCP Nurse Practitioner Adult Health; Visit Provider Nurse Practitioner Adult Health
DX: R42 Dizziness and giddiness (principal); I65.23 Occlusion and stenosis of bilateral carotid arteries
CPT/HCPCS: 93880

== ENCOUNTER 2022-06-05 13:59 | Outpatient (CLI) | payer MEDICARE, BC, SELFPAY ==
--- NOTE | ~2022-06-05 | XR_ITS ---
XR knee LT min 4V 06/05/2022 14:31 Indication: Left knee pain Procedure: 5 views left knee Comparison: No prior studies for comparison. Findings: There is severe tricompartment osteoarthritis. There are degenerative cysts in the patella and distal femur. No acute fracture or traumatic malalignment. No significant joint effusion. No fore ign bodies. Impression: 1: Severe tricompartment osteoarthritis of the left knee. Reviewed, dictated and finalized at location A. Impression: 1: Severe tricompartment osteoarthritis of the left knee.
--- NOTE | ~2022-06-05 | XR_ITS ---
XR knee RT min 4V 06/05/2022 14:31 Indication: Bilateral knee arthritis. Procedure: 4 views of the right knee Comparison: 02/13/2021 Findings: There is moderate-severe osteoarthritis of the right knee. No fracture or traumatic malalig nment. No significant joint effusion. No foreign bodies. Impression: 1: Moderate-severe tricompartment osteoarthritis of the right knee. Reviewed, dictated and finalized at location A. Impression: 1: Moderate-severe tricompartment osteoarthritis of the right knee.
== END 2022-06-05 14:00 | disposition home or self-care (01) ==
PROVIDERS: PCP Nurse Practitioner Adult Health; Visit Provider Physician Assistant Surgical
DX: M17.0 Bilateral primary osteoarthritis of knee (principal)
CPT/HCPCS: 73564

== ENCOUNTER 2022-07-03 07:37 | Outpatient (CLI) | payer MEDICARE, BC, SELFPAY ==
[2022-07-03 08:20] LABS: Albumin Level 3.6 g/dL (3.5-5.1); Estimated Glomerular Filt Rate > 60; Glucose 107 mg/dL (65-110)
[2022-07-03 08:24] LABS: Hematocrit 39.9 % (37.0-47.0); Hemoglobin 12.4 g/dL (12.0-15.0)
== END 2022-07-03 07:38 | disposition home or self-care (01) ==
LOC: ANHLAB 07:49
PROVIDERS: PCP Nurse Practitioner Adult Health; Visit Provider Orthopaedic Surgery
DX: Z01.818 Encounter for other preprocedural examination (principal); I10 Essential (primary) hypertension; E78.5 Hyperlipidemia, unspecified; R42 Dizziness and giddiness; M17.11 Unilateral primary osteoarthritis, right knee
CPT/HCPCS: 36415; 82040; 82565; 82947; 85014; 85018

== ENCOUNTER 2022-08-11 08:17 | Outpatient (CLI) | payer MEDICARE, BC, SELFPAY ==
--- NOTE | 2022-08-11 | EST_ITS ---
Patient Info Name: Joann Mckinley Age: 86 years : 1935 Gender: Female Ht: 60 in Wt: 120 lbs BSA: 1.53 m2 Exam Date: 08/11/2022 9:34 AM Exam Location: [facility] Stress Patient Status: Outpatient Admit Date: 08/11/2022 Staff Ordering Physician: Moise, Daisy GALVAN Attending Provider: Moise, Daisy GALVAN Exercise Technologist: Tere Nguyen RDCS Nurse: UMER SCHAFFER NP Exam Type: CA stress ava w NM Study Info Indications Z01.818 - Encounter for other preprocedural examination A regadenoson stress test was performed. Summary 1. Sinus rhythm with right bundle branch block. 2. No ST or T-wave abnormality following Lexiscan injection. 3. Clinically and electrocardiographically unremarkable Lexiscan stress test. 4. Myocardial perfusion imaging study to be reported by Radiology. Protocol: Lexiscan Stress ECG Details Stage: REST Duration (min): 1 min : 53 sec HR (bpm): 76 SBP (mmHg): 139 DBP (mmHg): 68 Stage: REST Duration (min): 4 min : 12 sec HR (bpm): 77 SBP (mmHg): 139 DBP (mmHg): 68 Stage: STAGE 1 Duration (min): 0 min : 59 sec HR (bpm): 102 SBP (mmHg): 131 DBP (mmHg): 66 Stage: RECOVERY Duration (min): 1 min : 0 sec HR (bpm): 102 SBP (mmHg): 115 DBP (mmHg): 62 Stage: RECOVERY Duration (min): 2 min : 0 sec HR (bpm): 104 SBP (mmHg): 115 DBP (mmHg): 62 Stage: RECOVERY Duration (min): 3 min : 0 sec HR (bpm): 102 SBP (mmHg): 113 DBP (mmHg): 54 Stage: RECOVERY Duration (min): 4 min : 0 sec HR (bpm): 100 SBP (mmHg): 113 DBP (mmHg): 54 Stage: RECOVERY Duration (min): 5 min : 0 sec HR (bpm): 96 SBP (mmHg): 115 DBP (mmHg): 51 Stage: RECOVERY Duration (min): 5 min : 37 sec HR (bpm): 98 SBP (mmHg): 115 DBP (mmHg): 51 Rest HR: 77 bpm Peak HR: 104 bpm Rest Sys BP: 139 mmHg Peak Sys BP: 131 mmHg Max Pred HR: 136 bpm % Max Pred HR: 76 % Target HR: 116 bpm Max RPP: 13,624 bpm*mmHg Termination Reason: Completed protocol Cardiac Symptoms: None Total Time: 1 min : 0 sec Rest Beltran BP: 68 mmHg Peak Beltran BP: 66 mmHg Total Dose: 0.4 mg Resting ECG Sinus rhythm with right bundle branch block. Stress ECG No ST or T-wave abnormality following Lexiscan injection. Report Signatures
--- NOTE | ~2022-08-11 | NM_ITS ---
EXAMINATION: NM ava stress w perfusion DATE: 08/11/2022 10:55 CDT INDICATION: Preprocedural examination. TECHNIQUE: Rest images were obtained following intravenous administration of 10 mCi Tc99m tetrofosmin (Myoview). The patient was infused intravenously with Lexiscan (regadenoson). Then, 32.3 mCi Tc99m t etrofosmin (Myoview) was administered intravenously, and stress images were obtained. Data was recons tructed into short axis and horizontal and vertical long axis SPECT images. Gated SPECT images were a lso obtained. COMPARISON: None. FINDINGS: There is no definite reversible or fixed perfusion abnormality to suggest ischemia or infar ction. There is no segmental wall motion abnormality. Left ventricular ejection fraction measures 8 9%. IMPRESSION: 1. No definite ischemia or infarct. 2. Normal left ventricular ejection fraction measuring 89%. Reviewed, dictated and finalized at location A.
== END 2022-08-11 08:18 | disposition home or self-care (01) ==
PROVIDERS: PCP Nurse Practitioner Adult Health; Visit Provider Nurse Practitioner Adult Health
DX: Z01.818 Encounter for other preprocedural examination (principal); R94.31 Abnormal electrocardiogram [ECG] [EKG]; I45.10 Unspecified right bundle-branch block
CPT/HCPCS: 78452; 93017; A9502; J2785

== ENCOUNTER 2022-08-14 12:52 | Emergency (ER) | payer MEDICARE, BC, SELFPAY ==
[2022-08-14 13:04] VITALS: BP 126/63; PULSE 81; RESP 18; TEMP 36.4; O2SAT 98
--- NOTE | 2022-08-14 13:07 | ED.EAR ---
HPI - Ear Problem General Chief complaint: Ear Stated complaint: Difficulty hearing from left ear Time Seen by Provider: 08/14/22 13:11 Source: patient and RN notes reviewed Mode of arrival: ambulatory Limitations: no limitations History of Present Illness HPI Narrative: 86-year-old female presents with concern for a feeling of her ears being clogged, worse on the left. She reports she has had sinus congestion, drainage, pressure for more than 1 month, worse on the left. She reports she has an appointment with ENT in the middle of August, however she would like to see to be resolved before then. She denies drainage from the ear. She denies ear pain. She reports she was treated with amoxicillin c in the past without relief. MD Complaint: ear pain Related Data Home Medications Medication Instructions Recorded Confirmed aspirin 81 mg tablet,delayed 81 mg PO DAILY 02/13/21 08/14/22 release (Adult Aspirin Regimen) losartan 50 mg tablet 50 mg PO DAILY 02/13/21 08/14/22 simvastatin 10 mg tablet 10 mg PO DAILY 02/13/21 08/14/22 omeprazole 40 mg capsule,delayed 40 mg PO DAILY PRN Acid Reflux 10/09/21 08/14/22 release celecoxib 200 mg capsule 200 mg PO DAILY 03/26/22 08/14/22 primidone 50 mg tablet 50 mg PO DAILY 03/26/22 08/14/22 hydrochlorothiazide 12.5 mg capsule 12.5 mg PO DAILY 07/02/22 08/14/22 meclizine 25 mg tablet 25 mg PO TID 07/02/22 08/14/22 Allergies Allergy/AdvReac Type Severity Reaction Status Date / Time alendronate sodium Allergy Mild Chest Pain Verified 07/02/22 10:29 [From Fosamax] grass pollen Allergy Mild Congested Verified 07/02/22 10:29 Review of Systems Review of Systems: CONSTITUTIONAL: Denies malaise, chills, sweats, or fever. EYES: Denies visual changes, redness, or discharge. ENT: Reports rhinorrhea, congestion, sinus paint. Reports ear fullness, worse on the left CARDIOVASCULAR: Denies chest pain, palpitations, or edema. RESPIRATORY: Denies cough. Denies dyspnea. GASTROINTESTINAL: Denies abdominal pain, nausea, vomiting, diarrhea SKIN: Denies rash or itching. MUSCULOSKELETAL: Denies myalgia. NEUROLOGIC: Denies headache. All systems reviewed & are unremarkable except as noted in HPI and below PMFSH Past Medical History Medical History (Updated 08/14/22 @ 13:22 by Thalia Fowler NP) Arthritis of both knees History of cyst of breast 1979 Hypertension Osteoporosis Scoliosis Tremor Family History Family History (Updated 07/02/22 @ 10:36 by Valerie Velásquez MA) Daughter Malignant neoplastic disease Arthritis Son Kidney disease Sibling Malignant neoplastic disease Father Malignant neoplastic disease Mother Hypertension Heart disease Malignant tumor of cervix Social History Social History Smoking status: Never smoker Alcohol intake: never Substance use: never Gender identity (if verbalized by the patient): Female Spiritual care concerns: No Comments At time of signature, agree with nursing past medical, surgical, social and family history. There is no relevant family history pertinent to the presenting complaint Exam Narrative: GENERAL: Well-appearing, well-nourished, and in no acute distress. HEAD: Normocephalic EYES: PERRLA, conjunctivae clear ENT: Nares clear, turbinates erythematous. Mucous membranes moist. TM pearly lawson with dull light reflex bilaterally; no tragal tenderness. Oropharynx not erythematous without lesions. Tonsils not enlarged and without exudate, no drooling, no hoarseness, no trismus, uvula midline. NECK: Supple. No lymphadenopathy CHEST: Clear to auscultation, breath sounds equal. No wheezing, rhonchi, rales, or stridor. No respiratory distress, speaks in full sentences. HEART: Regular rate and rhythm. No murmur heard. SKIN: Warm, dry, no rash. NEURO: Alert and oriented x3. PSYCH: Normal mood and affect Course Course Emergency Course: Patient is aware of diagno
== END 2022-08-14 13:31 | disposition home or self-care (01) ==
PROVIDERS: Emergency Provider Nurse Practitioner; PCP Nurse Practitioner Adult Health
DX: J01.90 Acute sinusitis, unspecified (principal); B96.89 Other specified bacterial agents as the cause of diseases classified elsewhere; I10 Essential (primary) hypertension; Z79.82 Long term (current) use of aspirin
CPT/HCPCS: 99213; G0463

== ENCOUNTER 2022-08-25 13:44 | Outpatient (CLI) | payer MEDICARE, BC, SELFPAY ==
[2022-08-25 15:22] LABS: Eosinophils Absolute Auto 0.4 K/mm3 (0-0.3); Eosinophils Percent Auto 5.8 % (0-4.4); Hematocrit 39.3 % (37.0-47.0); Hemoglobin 12.3 g/dL (12.0-15.0); Immature Granulocyte Absolute 0.02 K/mm3 (0.00-0.031); Immature Granulocyte Percent A 0.3 % (0-0.5); Lymphocytes Absolute Auto 1.29 K/mm3 (0.9-3.2); Lymphocytes Percent Auto 19.3 % (18.3-44.2); Mean Corpuscular HGB Conc 31.3 g/dl (32-36); Mean Corpuscular Hemoglobin 28.7 pg (26-34); Mean Corpuscular Volume 91.8 fl (80-100); Mean Platelet Volume 9.3 fl (7.4-10.4); Monocytes Absolute Auto 0.2 K/mm3 (0.1-0.6); Monocytes Percent Auto 3.1 % (2.6-8.5); Neutrophils Absolute Auto 4.8 K/mm3 (1.3-6.7); Neutrophils Percent Auto 71.5 % (45.5-73.1); Platelet Count Result 368 k/mm3 (150-375); Red Blood Count 4.28 M/mm3 (4.2-5.4); Red Cell Distribution Width 14.2 % (11.5-14.5); White Blood Count 6.7 K/mm3 (4.5-10.0)
[2022-08-25 15:33] LABS: Albumin Level 3.2 g/dL (3.5-5.1)
[2022-08-25 15:38] LABS: Anion Gap 9 mmol/L (8-16); Blood Urea Nitrogen 19 mg/dL (7-17); Calcium 8.1 mg/dL (8.4-10.2); Carbon Dioxide 25 mmol/L (22-30); Chloride 99 mmol/L (98-107); Estimated Glomerular Filt Rate 60; Glucose 107 mg/dL (65-110); Hemoglobin A1C 5.3 % (<5.7); Potassium 4.2 mmol/L (3.4-5.0); Sodium 133 mmol/L (137-145)
[2022-08-25 15:52] LABS: Urine Cotinine NEGATIVE
== END 2022-08-25 13:45 | disposition home or self-care (01) ==
LOC: ANHSURGERY 13:48
PROVIDERS: Anesthesiology; PCP Nurse Practitioner Adult Health; Visit Provider Orthopaedic Surgery
DX: Z01.812 Encounter for preprocedural laboratory examination (principal); M17.11 Unilateral primary osteoarthritis, right knee; Z51.81 Encounter for therapeutic drug level monitoring; Z79.899 Other long term (current) drug therapy
CPT/HCPCS: 80048; 80307; 82040; 83036; 85025; 87081

== ENCOUNTER 2022-09-11 07:45 | Outpatient (CLI) | payer MEDICARE, BC, SELFPAY | END 2022-09-11 07:46 | disposition home or self-care (01) | LOC: ANHAUDIO 07:47 | PROVIDERS: PCP Nurse Practitioner Adult Health; Visit Provider Otolaryngology | DX: H90.A21 Sensorineural hearing loss, unilateral, right ear, with restricted hearing on the contralateral side (principal); H90.A32 Mixed conductive and sensorineural hearing loss, unilateral, left ear with restricted hearing on the contralateral side | CPT/HCPCS: 92557; 92567 ==

== ENCOUNTER 2022-09-16 10:15 | Outpatient (CLI) | payer MEDICARE, BC, SELFPAY ==
[2022-09-16 10:42] LABS: Albumin Level 3.5 g/dL (3.5-5.1)
== END 2022-09-16 10:16 | disposition home or self-care (01) ==
LOC: ANHSURGERY 10:16
PROVIDERS: Anesthesiology; PCP Nurse Practitioner Adult Health; Visit Provider Orthopaedic Surgery
DX: M17.11 Unilateral primary osteoarthritis, right knee (principal); Z01.818 Encounter for other preprocedural examination
CPT/HCPCS: 36415; 82040

== ENCOUNTER 2022-09-24 15:55 | Observation (INO) | payer MEDICARE, BC, SELFPAY ==
[2022-08-25 14:14] VITALS: BP 104/47; PULSE 91; RESP 16; TEMP 36.3; O2SAT 96; BMI 24.3
--- NOTE | 2022-08-25 14:28 | PC.NURSE ---
Addendum entered by Antonina Parks RN 08/25/22 14:48: PT REQUESTS CHANGE IN TOTAL JOINT CLASS TO 08/27/22. PT AND DAUGHTER RELAY UNDERSTANDING OF NEW DATE/TIME. Original Note: Report to the Outpatient Waiting Room, entrance under the green pavilion located off [facility], at time __9:00AM on date ___09/23/22____. OR Time: __11:00AM . Time changes happen often and if your time is changed the preop area will call you the afternoon before. - You and your visitor will be asked to self-screen and do not enter if you have any COVID symptoms. - Only one visitor and NO children visitors are allowed at this time. - The patient visitor is requested to leave or wait in car when not with patient due to restrictions. - A mask is required within the hospital. Patients may have clear liquids (water, carbonated beverages, clear teas, apple juice) until 3 hours prior to surgery with a maximum of 20 ounces. - No food from midnight until time of surgery Take the following medications with a SIP of water the morning of surgery: ___PRIMADONE Medications to discontinue per physician ___HOLD ASPIRIN & DICLOFENAC OINTMENT PER DR DING Date to take last dose____NONE Please no make-up, nail romanian, hairspray, perfume, deodorant, or body powder the day of surgery. No jewelry (including any body piercings) or valuables the day of surgery, leave them at home. Please take a shower or bath the night before, or the morning of, surgery with an antibacterial soap. Wear comfortable, loose fitting clothing. Children are encouraged to wear pajamas. - Jewelry must be removed prior to entering the operating room. Rings and piercings that are not removed may be cut off. - The hospital will not accept responsibility for valuables. - Please leave all valuables, including medications, at home the day of surgery. If you are going home after surgery, a licensed fence post driver must drive you home. - NO public transportation without another adult. - We recommend that an adult stay with you for 24 hours following discharge. - We also recommend that you do not drive, make important decision, drink alcoholic beverages, or take any drugs that were not prescribed by your health care provider for at least 24 hours after your discharge time. Follow any additional instructions given to you from your surgeon. If you or anyone in your household have experienced Covid symptoms in the past week, please notify your surgeon or the nurse liaison at the phone number below for possible testing. Telephone instructions given to __patient& daughter and asked if any additional questions and then verbalized understanding. Patient advised to call surgeon office or pre surgery nurse liaison [phone] if any additional questions.
[2022-09-23] VITALS (14 sets, daily range): BP systolic 94–114; BP diastolic 44–58; PULSE 70–95; RESP 10–18; TEMP 36–36.6; O2SAT 95–100
--- NOTE | 2022-09-23 07:21 | WPDHPUPDATE1 ---
History and Physical Update Update Date/Time: 09/23/22 07:21 History and Physical has been reviewed, including an updated exam of the patient. There are NO changes in the patient's condition. Risks, benefits, and alternatives have been discussed and questions answered. Patient agrees to proceed with procedure.
[2022-09-23] MEDS: ACETAMINOPHEN 500 MG TABLET 1000 MG PO (09:28)
[2022-09-23] MEDS: TRANEXAMIC ACID 1,000MG/ISO100 1,000 MG/100 ML BAG 200 MG IVPB (09:33)
[2022-09-23] MEDS: LACTATED RINGERS 1,000 ML 30 ML IV CONT ×2 (09:36→13:19)
--- NOTE | 2022-09-23 10:09 | WPDANESEPPF ---
Anes - Initial Pre Proc Eval Procedure: Operation Date: 09/23/22 11:00 Proposed Procedures p Right Total Knee Arthroplasty - Zach Nielsen MD Date/Time: 09/23/22 10:09 Surgeon: Zach Nielsen MD Pre Op Diagnosis: Prim OA Rt Knee Patient Data Age: 87 Gender: F Height: 1.51 m Weight: 54.7 kg Last Vital Signs Temp 36.6 C 09/23/22 09:30 Pulse 89 09/23/22 09:30 Resp 16 09/23/22 09:30 BP 114/52 L 09/23/22 09:30 Pulse Ox 100 09/23/22 09:30 O2 Del Method Room Air 09/23/22 09:30 Allergies Allergy/AdvReac Type Severity Reaction Status Date / Time alendronate sodium Allergy Mild Chest Pain Verified 09/23/22 09:50 [From Fosamax] grass pollen Allergy Mild Congested Verified 09/23/22 09:50 Home Medications Medication Instructions Recorded Confirmed Type aspirin 81 mg tablet,delayed 81 mg PO DAILY 02/13/21 09/23/22 History release (Adult Aspirin Regimen) losartan 50 mg tablet 50 mg PO DAILY 02/13/21 09/23/22 History simvastatin 10 mg tablet 10 mg PO DAILY 02/13/21 09/23/22 History celecoxib 200 mg capsule 200 mg PO DAILY 03/26/22 09/23/22 History primidone 50 mg tablet 50 mg PO BID 03/26/22 09/23/22 History hydrochlorothiazide 12.5 mg capsule 12.5 mg PO DAILY 07/02/22 09/23/22 History acetaminophen 650 mg 650 mg PO BID PRN Pain 08/25/22 09/10/22 History tablet,extended release fluticasone propionate 50 1 spray intranasal DAILY 09/09/22 09/23/22 History mcg/actuation nasal spray,suspension Patient hx anesthesia problems: none Family hx anesthesia problems: none Results Review: All pre-operative results and documents have been reviewed as part of the pre-operative evaluation. [facility] Past Medical History Medical History Arthritis of both knees History of cyst of breast 1979 Hyperlipidemia Hypertension Osteoporosis Scoliosis Tremor Family History Family History Daughter Malignant neoplastic disease Arthritis Son Kidney disease Sibling Malignant neoplastic disease Father Malignant neoplastic disease Mother Hypertension Heart disease Malignant tumor of cervix Social History Social History Smoking status: Never smoker Alcohol intake: never Substance use: never Has the Lack of Transportation Kept You From Medical Appointments or From Getting Medications?: No Within the Past 12 Months, Were You Worried Whether Your Food Would Run Out Before You Got Money to Buy More?: Never True What is Your Housing Situation Today?: I Do Not Have Housing Are You Worried That in the Next 2 Months, You May Not Have Your Own Housing to Live In?: No Do You Have Trouble Paying Your Heating Or Electricity Bill?: No Do You Have Trouble Paying For Medicines?: No Are You Currently Unemployed and Looking for Work?: No Highest Level of Education Completed: High School Diploma/GED Do You Have Trouble With Childcare or the Care of a Family Member?: No Living arrangements: alone Additional living arrangements comments: SON Gender identity (if verbalized by the patient): Female Spiritual care concerns: No Anes - Eval Final PreProcedure Day of Procedure 09/23/22 10:09 Patient weight: normal Heart: regular rate and rhythm Lungs: clear to auscultation Airway: Mallampati scale class II Neurological: alert and oriented Last oral intake: >/= 8 hours ASA classification: III Emergent: no Anesthetic plan: proceed Anesthesia type and monitoring: general LMA and standard monitoring Results Review: All pre-operative results and documents have been reviewed as part of the pre-operative evaluation. Informed Consent: The patient's anesthetic plan and its attendant risks and benefits were discussed with the patient/family/POA. Questions were solicited and answers provided to
--- NOTE | 2022-09-23 10:59 | WPDANESPNB ---
Anes - Peripheral Nerve Block Date/Time: 09/23/22 10:59 I have discussed with the patient/family/POA the placement of a peripheral nerve block for post-operative pain management, including associated risks, benefits, complications, and side effects. Alternative methods of post-operative analgesia were detailed. Questions were solicited and answers provided to the satisfaction of the patient/family/POA. Time-Out: A pre-procedural Time-Out was completed immediately before starting the procedure and confirmed: Patient Identification, Site, Procedure, Patient Position and the Availability of Requisite Equipment. Clinical Indications: Acute post-operative pain management requested by the operative surgeon. Nerve Block Insertion Note Anes-nerve block: adductor canal right Patient position: supine Skin prep: chlorhexidine Needle: 22 gauge, stimulating, insulated echogenic needle. Needle length: 80 mm Technique: ultrasound Technique comment: fent 25mcg Injectate: bupivacaine 0.5% with epi 5 mcg/ml (30ml no epi) and dexamethasone (mg) (4) Observations: tolerated well Complications: none Procedure start time:: 1050 Procedure end time:: 1056
[2022-09-23] MEDS: ceFAZolin 2 GM/D5W 50 ML 2 GM/50 ML BAG IVPB ×2 (11:00→20:26)
[2022-09-23] MEDS: GENTAMICIN BONE CEMENT REFOBACIN 1 EACH TOPICAL (12:27)
--- NOTE | 2022-09-23 15:52 | ADMGEN ---
This patient, Joann Mckinley, was admitted to 2 Medical Room 255-01. Patient/family oriented to hospital policies and general routines including ID bracelet, bed and alarms, visiting hours, pain management, procedures, bathroom and other care routines, personal items, smoking policy, room service/diet, and visiting hours. Information on how to activate the Rapid Response Team has been discussed. Patient/Family are encouraged to report perceived risks to care and to ask questions if they do not understand what they are told or what they should do.
--- NOTE | 2022-09-23 16:15 | P.OP_ITS ---
Procedure Note - Detailed Date of Procedure 09/23/22 Pre-op Diagnosis Prim OA Rt Knee Post-op Diagnosis Same Procedure Performed Total knee arthroplasty, right. Surgeon Zach Nielsen MD Kerfer Machine Operator Ada Oswald PA-C Anesthesia General and Regional (subsartorial block) Findings Fair bone quality. Thin eroded patella. Moderate medial release. Description of Procedure The patient was brought to the operating room. A general anesthetic was administered. The leg was prepped and draped in the usual sterile fashion. The limb was elevated and the tourniquet inflated to 300 mmHg during initial exposure, and cementation. A longitudinal incision was created along the medial border of the patella and patellar tendon, and a trivector approach to the knee was performed. A moderate medial release was taken. The knee was then flexed. The osteophytes were carefully removed. The intramedullary guide was placed in the femoral canal. The distal femoral resection was then taken with the oscillating saw. The collateral ligaments were carefully protected. The tibia was carefully exposed. The jig was applied, and the proximal tibia was resected according to preoperative plan. The knee was balanced in extension. Appropriate releases were taken where needed. The anterior cruciate ligament and meniscal remnants were removed. The posterior cruciate ligament was preserved. The patella was measured. Patellar resection was carried out with the oscillating saw. The lug holes drilled. The femur was sized and rotation assessed using a combination of gap balancing, posterior referencing, and the AP axis. The 4 in 1 cutting block was used to finish the femoral cuts after equal gaps were assured. The osteophytes were carefully removed from the back of the knee. The knee was copiously irrigated with antibiotic solution periodically throughout the procedure. The meniscal remnants were removed. The spacer block was used to confirm equal flexion and extension gaps. No further releases were needed. The tibia was sized and broached. The bony surfaces were prepared for cementing with pulsatile lavage. The real tibial and femoral components were cemented into position. Excess cement was carefully removed. The patella was press fit. Patellar tracking was carefully assessed. No additional releases were required. Dilute sterile Betadine soak performed for three minutes. Copious irrigation then performed. The wound was closed with #1 Vicryl suture, #2, 2-0, and 3-0 barbed suture, followed by Steri-Strips. A sterile bulky dressing was applied. Meticulous hemostasis was maintained throughout the procedure. The bipolar cautery device was used. The pain relieving mixture was injected into the periarticular tissues during the procedure. There were no complications. The patient was extubated and brought to the recovery room in stable condition after the application of sterile dressing with Daniel bandage. Physician insurance underwriting assistant, Ada Oswald PA-C, required for surgery; including p atient positioning, draping, tissue retraction, maintaining instrument position, cement removal, wound closure, and dressing placement. Implants Hoppit Triathlon knee system, low profile cemented tibia size 3, cemented cruciate retaining femoral component size 2 ,and an 9 mm cruciate stabilized polyethylene insert. 32mm asymmetric metal backed patella component. Estimated Blood Loss -100.0 Drains No Pathology None sent Complications No immediate complications Condition Stable Disposition PACU [facility] Billing Surgery - Charge Forward: Surgery Billing
[2022-09-23] MEDS: SENNA/DOCUSATE SODIUM TABLET 2 TAB PO (17:52)
[2022-09-23] MEDS: ASPIRIN 81 MG ENTERIC TABLET PO (17:52)
[2022-09-23] MEDS: PRIMIDONE 50 MG TABLET PO (17:52)
[2022-09-23] MEDS: FAMOTIDINE 20 MG TABLET PO (20:26)
[2022-09-23] MEDS: traMADol HCL (*CRX) 50 MG TABLET PO (21:25)
--- NOTE | ~2022-09-24 | XR_ITS ---
XR knee RT 2V DATE: 09/23/2022 13:51 INDICATION: Right total knee replacement TECHNIQUE: Postoperative AP and lateral views COMPARISON: 06/05/2022 right knee FINDINGS: Status post right total knee arthroplasty. There is expected subcutaneous and intraarticula r gas shortly postoperatively. No fracture or dislocation, periosteal reaction or bone destruction. IMPRESSION: Status post right total knee arthroplasty Reviewed, dictated and finalized at location A.
[2022-09-24] MEDS: oxyCODONE HCL (*CRX) 5 MG TAB IR 10 MG PO ×2 (00:16→20:51)
[2022-09-24 00:51] VITALS: BP 103/51; PULSE 65; RESP 18; TEMP 36; O2SAT 98
[2022-09-24 03:47] VITALS: BP 111/54; PULSE 77; RESP 18; TEMP 36; O2SAT 97
[2022-09-24] MEDS: ceFAZolin 2 GM/D5W 50 ML 2 GM/50 ML BAG IVPB ×2 (04:13→11:59)
[2022-09-24] MEDS: ONDANSETRON INJ 4 MG/2 ML VIAL IV PUSH (04:44)
[2022-09-24 05:41] LABS: Basophils Percent Auto 0.2 % (0.2-1.2); Eosinophils Absolute Auto 0.3 K/mm3 (0-0.3); Eosinophils Percent Auto 3.2 % (0-4.4); Hematocrit 29.5 % (37.0-47.0); Hemoglobin 9.2 g/dL (12.0-15.0); Immature Granulocyte Absolute 0.06 K/mm3 (0.00-0.031); Immature Granulocyte Percent A 0.6 % (0-0.5); Lymphocytes Absolute Auto 1.72 K/mm3 (0.9-3.2); Lymphocytes Percent Auto 16.2 % (18.3-44.2); Mean Corpuscular HGB Conc 31.2 g/dl (32-36); Mean Corpuscular Hemoglobin 28.6 pg (26-34); Mean Corpuscular Volume 91.6 fl (80-100); Mean Platelet Volume 9.3 fl (7.4-10.4); Monocytes Absolute Auto 0.5 K/mm3 (0.1-0.6); Neutrophils Percent Auto 74.8 % (45.5-73.1); Platelet Count Result 310 k/mm3 (150-375); Red Blood Count 3.22 M/mm3 (4.2-5.4); Red Cell Distribution Width 13.2 % (11.5-14.5); White Blood Count 10.7 K/mm3 (4.5-10.0)
[2022-09-24 06:02] LABS: Anion Gap 8 mmol/L (8-16); Blood Urea Nitrogen 16 mg/dL (7-17); Calcium 7.4 mg/dL (8.4-10.2); Carbon Dioxide 25 mmol/L (22-30); Chloride 98 mmol/L (98-107); Estimated Glomerular Filt Rate > 60; Glucose 104 mg/dL (65-110); Potassium 3.3 mmol/L (3.4-5.0); Sodium 131 mmol/L (137-145)
--- NOTE | 2022-09-24 07:10 | PM.IMCN ---
Assessment and Plan Assessment and plan (1) Primary localized osteoarthritis of right knee: Code(s): M17.11 - Unilateral primary osteoarthritis, right knee Status: Acute Assessment and Plan: s/p Right TKA 09/23/22 Orthopedics management- continue pain control, postop antibiotics, PT/OT and DVT prophylaxis. (2) Hypertension: Qualifiers: Hypertension type: primary hypertension Qualified Code(s): I10 - Essential (primary) hypertension Code(s): I10 - Essential (primary) hypertension Status: Chronic Assessment and Plan: Chronic, stable. Continue HCTZ and losartan and BP tolerates. BP K 3.3 and sodium 131 postop. magnesium level 1.6 and give 40 mEQ PO x1. Asymptomatic with sodium level. Likely secondary to medications. Repeat BMP in am. (3) Hyperlipidemia: Qualifiers: Hyperlipidemia type: mixed hyperlipidemia Qualified Code(s): E78.2 - Mixed hyperlipidemia Code(s): E78.5 - Hyperlipidemia, unspecified Status: Chronic Assessment and Plan: Chronic, stable. Continue simvastatin. (4) Tremor: Code(s): R25.1 - Tremor, unspecified Status: Chronic Assessment and Plan: Chronic, stable. Continue primidone. Plan CODE STATUS: FULL CODE Disposition: patient plans to go home at discharge. Thank you for allowing me to assist in your patient's care. Please do not hesitate to call for any questions or concerns. HPI Data of Consult Consult date: 09/24/22 Requesting Physician: Zach Nielesn MD Primary Care Provider: Daisy Phipps, CAR SALESPERSON Consult Narrative Narrative: Joann Mckinley is a 87 year old female hypertension, osteoporosis, scoliosis, essential tremors, and osteoporosis to both knees, shoulders and cervical spine. She presented to the hospital for scheduled surgery. She underwent right total knee arthroplasty on 09/23/[address] Nielsen. She reports longstanding history of diffuse bilateral knee pain that has worsened in the past year. She has taken celebrex and PRN acetaminophen without significant improvement. Today, she reports moderate right knee pain, but denies OTTO, chest pain, SOB, abdominal pain, N/V/D, dysuria or paresthesia. We have been consulted to assist with medical management. Review of Systems Review of Systems: All systems reviewed & are unremarkable except as noted in HPI and below PMFSH Past Medical History Medical History Arthritis of both knees History of cyst of breast 1979 Hyperlipidemia Hypertension Osteoporosis Scoliosis Tremor Family History Family History Daughter Malignant neoplastic disease Arthritis Son Kidney disease Sibling Malignant neoplastic disease Father Brain tumor, Onset Age: 63 Mother Hypertension Heart disease Malignant tumor of cervix Social History Social History (Updated 09/24/22 @ 12:59 by Asuncion Salvador APRN) Smoking status: Never smoker Alcohol intake: never Substance use: never Substance use type: does not use Has the Lack of Transportation Kept You From Medical Appointments or From Getting Medications?: No Within the Past 12 Months, Were You Worried Whether Your Food Would Run Out Before You Got Money to Buy More?: Never True What is Your Housing Situation Today?: I Have Housing Are You Worried That in the Next 2 Months, You May Not Have Your Own Housing to Live In?: No Do You Have Trouble Paying Your Heating Or Electricity Bill?: No Do You Have Trouble Paying For Medicines?: No Are You Currently Unemployed and Looking for Work?: No Highest Level of Education Completed: Don't Know Do You Have Trouble With Childcare or the Care of a Family Member?: No Living arrangements: with family Additional living arrangements comments: SON Gender identity (if verbalized by the patient): Fe
[2022-09-24 07:53] LABS: Magnesium 1.6 mg/dL (1.6-2.3)
[2022-09-24] MEDS: polyethylene glycoL 3350 17 GM POWD.PACK PO (08:21)
[2022-09-24] MEDS: LOSARTAN POTASSIUM 50 MG TABLET PO (08:22)
[2022-09-24] MEDS: PRIMIDONE 50 MG TABLET PO ×2 (08:22→17:35)
[2022-09-24] MEDS: FAMOTIDINE 20 MG TABLET PO ×2 (08:22→20:51)
[2022-09-24] MEDS: predniSONE 5 MG TABLET PO (08:22)
[2022-09-24] MEDS: POTASSIUM CHLORIDE 20 MEQ TABLET 40 MEQ PO (08:22)
[2022-09-24] MEDS: CELECOXIB 200 MG CAPSULE PO (08:22)
[2022-09-24] MEDS: CYCLOBENZAPRINE HCL 10 MG TABLET PO (08:22)
[2022-09-24] MEDS: ASPIRIN 81 MG ENTERIC TABLET PO ×2 (08:22→17:35)
[2022-09-24] MEDS: hydroCHLOROthiazide 12.5 MG CAPSULE PO (08:22)
[2022-09-24] MEDS: SIMVASTATIN 10 MG TABLET PO (08:22)
[2022-09-24] MEDS: SENNA/DOCUSATE SODIUM TABLET 2 TAB PO ×2 (08:22→17:35)
--- NOTE | 2022-09-24 10:50 | P.PNAN_ITS ---
Anes - Prog Note Post-Op Date/Time: 09/24/22 8:30 Cardiovascular status: normal Respiratory status: normal Airway patency: baseline Mental status: baseline Post-Op hydration status: normal Vital Signs: Last Vital Signs Temp 96.8 F L 09/24/22 03:47 Pulse 77 09/24/22 03:47 Resp 18 09/24/22 03:47 BP 111/54 L 09/24/22 03:47 Pulse Ox 97 09/24/22 03:47 O2 Del Method Room Air 09/24/22 07:49 O2 Flow Rate 8 09/23/22 13:55 Pain Score (VAS): 3 I/O: Intake & Output 09/23/22 09/24/22 09/24/22 23:59 07:59 15:59 Intake Total 390 390 360 Balance 390 390 360 Laboratory Tests 09/24/22 05:15 09/24/22 05:15 09/23/22 09/24/22 09/24/22 09:42 05:14 05:15 WBC 10.7 H RBC 3.22 L Hgb 9.2 L D Hct 29.5 L MCV 91.6 MCH 28.6 MCHC 31.2 L RDW 13.2 Plt Count 310 MPV 9.3 Immature Gran % (Auto) 0.6 H Neut % (Auto) 74.8 H Lymph % (Auto) 16.2 L Letcher % (Auto) 5.0 Eos % (Auto) 3.2 Baso % (Auto) 0.2 Lymph # (Auto) 1.72 Letcher # (Auto) 0.5 Eos # (Auto) 0.3 Baso # (Auto) 0.0 Abs Immat Gran (auto) 0.06 H Absolute Neuts (auto) 8.0 H Absolute Nucleated RBC 0.0 Nucleated RBC % 0.0 Sodium Potassium Chloride Carbon Dioxide Anion Gap BUN Creatinine Estim Creat Clear Calc Estimated GFR Glucose Calcium Magnesium 1.6 Antibody Screen Negative 09/24/22 05:15 WBC RBC Hgb Hct MCV MCH MCHC RDW Plt Count MPV Immature Gran % (Auto) Neut % (Auto) Lymph % (Auto) Letcher % (Auto) Eos % (Auto) Baso % (Auto) Lymph # (Auto) Letcher # (Auto) Eos # (Auto) Baso # (Auto) Abs Immat Gran (auto) Absolute Neuts (auto) Absolute Nucleated RBC Nucleated RBC % Sodium 131 L Potassium 3.3 L Chloride 98 Carbon Dioxide 25 Anion Gap 8 BUN 16 Creatinine 0.70 Estim Creat Clear Calc Not Reportable Estimated GFR > 60 Glucose 104 Calcium 7.4 L Magnesium Antibody Screen Post-procedural complaints: none Patient Feedback: Patient satisfied with anesthetic care. Other Findings: pt verbalized nausea this am after pain meds
--- NOTE | 2022-09-24 12:38 | PC.NURSE ---
On 09/24/22, the student, [Lisa Downs], provided care and completed [facility] documentation on this patient. I have reviewed the student's documentation and agree with the findings.
--- NOTE | 2022-09-24 12:54 | PM.PNORT ---
Progress Note: A&P Assessment and Plan (1) Status post total right knee replacement: Code(s): Z96.651 - Presence of right artificial knee joint Status: Acute Assessment and Plan: POD #1 Total knee arthroplasty. Patient notes that she feels weak today. She would like to stay another day to build up strength and for better pain control. She also complains of some shoulder pain. History of arthritis in her shoulders. Plan for discharge tomorrow. Subjective Subjective Date/Time Seen: 09/24/22 12:54 Interval history: Patient resting comfortably in bed. Notes shoulder pain. States she has a history of arthritis and that this is normal for her. She states she is more shaky than usual and feels unsure about going home today. She would like to wait another day to build up some strength and better control her pain. Review of Systems Review of Systems: All systems reviewed & are unremarkable except as noted in HPI and below Exam Narrative: 87-year-old normal weight female. Resting comfortably in chair. Alert and oriented x3. No acute distress. Wearing compression socks bilaterally. Dressing intact with slight bloody drainage. Moderate swelling. Slight ecchymosis. No erythema. No hematoma. No warmth. Range of motion limited due to pain. Calf nontender. Neurologic status intact. No varicosities. Distal pulses palpable. Light touch sensation intact. Good capillary refill. Objective Data Vital Signs Vital Signs: Vital Signs - 24 hr 09/23/22 13:25 09/23/22 13:40 09/23/22 13:55 Temperature 97.9 F Pulse Rate 82 86 80 Respiratory Rate 14 12 12 Blood Pressure 103/46 L 110/54 L 106/51 L Pulse Oximetry 99 100 100 Oxygen Delivery Simple Face Mask Simple Face Mask Simple Face Mask Oxygen Flow Rate 8 8 8 09/23/22 14:10 09/23/22 14:25 09/23/22 14:40 Temperature Pulse Rate 83 78 80 Respiratory Rate 16 14 10 L Blood Pressure 103/53 L 101/56 L 96/51 L Pulse Oximetry 98 97 96 Oxygen Delivery Room Air Room Air Room Air Oxygen Flow Rate 09/23/22 14:55 09/23/22 15:10 09/23/22 17:20 Temperature Pulse Rate 80 77 Respiratory Rate 14 13 Blood Pressure 97/58 L 96/48 L Pulse Oximetry 96 98 Oxygen Delivery Room Air Room Air Room Air Oxygen Flow Rate 09/23/22 16:05 09/23/22 16:20 09/23/22 16:50 Temperature 97.1 F L 97.1 F L 97.4 F L Pulse Rate 77 78 84 Respiratory Rate 14 16 16 Blood Pressure 101/49 L 97/50 L 106/52 L Pulse Oximetry 95 96 98 Oxygen Delivery Oxygen Flow Rate 09/23/22 17:50 09/23/22 20:14 09/23/22 20:00 Temperature 97.4 F L 96.8 F L Pulse Rate 95 70 Respiratory Rate 16 18 Blood Pressure 94/44 L 112/52 L Pulse Oximetry 96 99 Oxygen Delivery Room Air Oxygen Flow Rate 09/24/22 00:51 09/24/22 03:47 09/24/22 07:28 Temperature 96.8 F L 96.8 F L Pulse Rate 65 77 Respiratory Rate 18 18 Blood Pressure 103/51 L 111/54 L Pulse Oximetry 98 97 Oxygen Delivery Room Air Oxygen Flow Rate 09/24/22 07:49 Temperature Pulse Rate Respiratory Rate Blood Pressure Pulse Oximetry Oxygen Delivery Room Air Oxygen Flow Rate Intake/Output Intake/Output: Intake & Output 09/21/22 09/22/22 09/23/22 09/24/22 23:59 23:59 23:59 23:59 Intake Total 1840 1280 Balance 1840 1280 Meds/Results Medications: Active Medications Generic Name Dose Route Start Last Admin Trade Name Freq PRN Reason Stop Dose Admin Aspirin 81 mg 09/23/22 17:00 09/24/22 08:22 Aspirin 81 Mg Enteric Tablet PO 81 mg BID LISETTE Administration Celecoxib 200 mg 09/24/22 09:00 09/24/22 08:22 Celecoxib 200 Mg Capsule PO 200 mg DAILY LISETTE Administration Cyclobenzaprine HCl 10 mg 09/23/22 15:22 09/24/22 08:22 Cyclobenzaprine Hcl 10 Mg Tablet PO 10 mg Q8H PRN Administration Spasms Diphenhydramine HCl 25 mg 09/23/22 15:22 Diphenhydramine Hcl Inj 50 Mg/Ml Vial IV PUSH Q6H PRN Itching Famotidine 20 mg
[2022-09-24 13:22] VITALS: BP 120/54; PULSE 74; RESP 12; TEMP 36.2; O2SAT 98
[2022-09-24 21:20] VITALS: BP 124/57; PULSE 84; RESP 16; TEMP 37; O2SAT 100
[2022-09-25] MEDS: oxyCODONE HCL (*CRX) 5 MG TAB IR 10 MG PO ×3 (01:21→12:43)
[2022-09-25 05:46] VITALS: BP 124/57; PULSE 90; RESP 12; TEMP 36.4; O2SAT 96
[2022-09-25 08:00] VITALS: BP 130/60; PULSE 94; RESP 14; TEMP 36.7; O2SAT 96
[2022-09-25] MEDS: CELECOXIB 200 MG CAPSULE PO (08:14)
[2022-09-25] MEDS: polyethylene glycoL 3350 17 GM POWD.PACK PO (08:14)
[2022-09-25] MEDS: hydroCHLOROthiazide 12.5 MG CAPSULE PO (08:14)
[2022-09-25] MEDS: PRIMIDONE 50 MG TABLET PO (08:14)
[2022-09-25] MEDS: LOSARTAN POTASSIUM 50 MG TABLET PO (08:14)
[2022-09-25] MEDS: SENNA/DOCUSATE SODIUM TABLET 2 TAB PO (08:14)
[2022-09-25] MEDS: SIMVASTATIN 10 MG TABLET PO (08:15)
[2022-09-25] MEDS: predniSONE 5 MG TABLET PO (08:15)
[2022-09-25] MEDS: FAMOTIDINE 20 MG TABLET PO (10:01)
[2022-09-25] MEDS: ASPIRIN 81 MG ENTERIC TABLET PO (10:01)
[2022-09-25 11:32] VITALS: O2SAT 98
--- NOTE | 2022-09-25 11:38 | PCOTNOTE ---
Attempted to see patient this am, however patient refused. Upon entering, patient reported already completed sponge bath, dressing, and grooming tasks this am. Daughter at bedside and neither had any concerns as pertains to OT prior to discharge. Pt plans to discharge home with her son's assist as needed.
--- NOTE | 2022-09-25 12:04 | PM.DS ---
DS: Admitting Diagnosis Discharge Date 09/25/22 Admitting Diagnosis OA knee Right DS: Discharge Diagnosis Discharge Diagnosis (1) Status post total right knee replacement: Code(s): Z96.651 - Presence of right artificial knee joint Status: Acute Assessment and Plan: Postop day 1: Right total knee arthroplasty. Patient tolerated procedure well. She was weak and had pain control issues yesterday. She is doing better today and is ready to go home. No numbness or tingling. We had a lengthy discussion regarding postoperative wound care, limitations, expectations, and exercises. Patient shows good understanding. He has had initial physical therapy and is tolerating it well. DVT prophylaxis: 81 mg baby aspirin b.i.d. for 14 days. Pain medication: Percocet. Prednisone. continue Celebrex. Patient has followup appointment with Dr. Nielsen in 3 weeks. DS: Summary Hospital Course Reason for hospitalization: Total knee arthroplasty Hospital Course: Patient tolerated procedure well. Has had initial PT/OT. Required an extra day due to decreased strength post op. Status at Discharge Functional status at discharge: uses cane/walker Overall status at discharge: patient is progressing back to baseline Time Spent with Patient Time attestation: Total time spent providing and/or coordinating discharge services: Exam Narrative: Elderly 87-year-old normal weight female. Resting comfortably in chair. Alert and oriented x3. No acute distress. Wearing compression socks bilaterally. Dressing intact without drainage on Mepilex. Moderate swelling. No ecchymosis. No erythema. No hematoma. Range of motion limited due to pain. Calf nontender. Neurologic status intact. No varicosities. Distal pulses palpable. Discharge Plan Discharge Attending physician on discharge: Zach Nielsen Consulting providers: Harman Balderas Discharging Clinician: Ada Oswald Anticipated Discharge Date/Time: 09/25/22 11:57 Patient Disposition: Home, Self-Care Activity: may shower Diet: regular Wound Care Instructions: follow printed instructions Discharge Instructions: See green instruction sheets Patient Instructions: Antibiotic Form Stand Alone Forms: General Discharge Information Follow-up/Referrals: dAa Oswald PA [Physician Drill Runner Helper] - Discharge Medications: New prednisone 5 mg tablet 5 mg PO DAILY 21 Days Qty: 21 0RF oxycodone-acetaminophen 5-325 mg tablet 1 - 2 tablet PO Q4-6H MDD 6 PRN (Reason: pain) Qty: 30 0RF aspirin 81 mg tablet,delayed release (DR/EC) 81 mg PO BID 14 Days Qty: 28 0RF Continued losartan 50 mg tablet 50 mg PO DAILY Rx Instructions: TAKES IN AM simvastatin 10 mg tablet 10 mg PO DAILY hydrochlorothiazide 12.5 mg capsule 12.5 mg PO DAILY fluticasone propionate 50 mcg/actuation spray,suspension 1 spray intranasal DAILY celecoxib 200 mg Capsule 200 mg PO DAILY Rx Instructions: TAKES IN AM primidone 50 mg Tablet 50 mg PO BID Held aspirin [Adult Aspirin Regimen] 81 mg tablet,delayed release (DR/EC) 81 mg PO DAILY Hold Instructions: Resume on 10/09/22. Take twice a day for 2 weeks then resume normal one a day dose. acetaminophen [Tylenol Arthritis] 650 mg Tablet Extended Release 650 mg PO BID PRN (Reason: Pain) Hold Instructions: Resume on 10/09/22. No more than 3,000 mg Tylenol in 24 hours. Your pain medication also has Tylenol in it. Date of admission: 09/24/22 15:55 Primary Care Provider: CorkyDaisy Admitting Provider: Zach Nielsen Attending physician on admission: Zach Nielsen Condition: Stable
--- NOTE | 2022-09-25 12:46 | PM.IMPN ---
Progress Note: A&P Assessment and Plan (1) Primary localized osteoarthritis of right knee: Code(s): M17.11 - Unilateral primary osteoarthritis, right knee Status: Acute Assessment and Plan: s/p Right TKA 09/23/22 Orthopedics management- continue pain control, postop antibiotics, PT/OT and DVT prophylaxis. (2) Hypertension: Qualifiers: Hypertension type: primary hypertension Qualified Code(s): I10 - Essential (primary) hypertension Code(s): I10 - Essential (primary) hypertension Status: Chronic Assessment and Plan: Chronic, stable. Continue HCTZ and losartan and BP tolerates. BP (3) Hyperlipidemia: Qualifiers: Hyperlipidemia type: mixed hyperlipidemia Qualified Code(s): E78.2 - Mixed hyperlipidemia Code(s): E78.5 - Hyperlipidemia, unspecified Status: Chronic Assessment and Plan: Chronic, stable. Continue simvastatin. (4) Tremor: Code(s): R25.1 - Tremor, unspecified Status: Chronic Assessment and Plan: Chronic, stable. Continue primidone. Plan Thank you for allowing me to assist in your patient's care. Please do not hesitate to call for any questions or concerns. Time Spent With Patient Time with patient: 15 - 25 minutes Subjective Date/time seen: 09/25/22 12:46 Patient found in the room working with therapy. She reports no new complaints or overnight events. No nausea today. Her pain is tolerable on oral medications. No OTTO, chest pain, SOB, abd pain, dysuria or paresthesia. Review of Systems Review of Systems: All systems reviewed & are unremarkable except as noted in HPI and below Exam Narrative: General: No acute distress.? Lying in bed. No oxygen. Mental Status/Psych: Awake, alert and oriented x3 with clear speech. Neutral mood and affect. Pleasant and cooperative. Skin: Skin fair, warm, dry without rashes or lesions. Right knee incision with surgical aquacel dressing clean, dry and intact. Fair turgor.? HEENT: Normocephalic. Sclera is non-icteric. Pupils equal and round. Grossly normal hearing. Oral mucosa moist. Neck: No JVD. Heart: S1 and S2 regular rate and rhythm. No murmurs, gallops, or rubs auscultated. Chest: Respirations even and unlabored. Lung sounds are clear to auscultation in all lobes bilaterally without wheezes, rhonchi, or rales. Abdomen: Soft, round and non-tender to palpation.? Bowel sounds present in all 4 quadrants. Extremities:? Grossly normal ROM all extremities, decreased ROM right knee secondary to pain. CELINA hose BLE. Neurological: No focal deficits. Objective Data Vital Signs Vital Signs: Vital Signs - 24 hr 09/24/22 13:22 09/24/22 21:20 09/24/22 20:55 Temperature 97.1 F L 98.6 F Pulse Rate 74 84 Respiratory Rate 12 16 Blood Pressure 120/54 L 124/57 L Pulse Oximetry 98 100 Oxygen Delivery Room Air 09/25/22 05:46 09/25/22 08:00 09/25/22 08:00 Temperature 97.6 F 98.0 F Pulse Rate 90 94 Respiratory Rate 12 14 Blood Pressure 124/57 L 130/60 Pulse Oximetry 96 96 Oxygen Delivery Room Air 09/25/22 11:32 Temperature Pulse Rate Respiratory Rate Blood Pressure Pulse Oximetry 98 Oxygen Delivery Room Air Intake/Output Intake/Output: Intake & Output 09/22/22 09/23/22 09/24/22 09/25/22 23:59 23:59 23:59 23:59 Intake Total 1840 1520 240 Balance 1840 1520 240 Meds/Results Medications: Active Medications Generic Name Dose Route Start Last Admin Trade Name Josephq PRN Reason Stop Dose Admin Aspirin 81 mg 09/23/22 17:00 09/25/22 10:01 Aspirin 81 Mg Enteric Tablet PO 81 mg BID LISETTE Administration Celecoxib 200 mg 09/24/22 09:00 09/25/22 08:14 Celecoxib 200 Mg Capsule PO 200 mg DAILY LISETTE Administration Cyclobenzaprine HCl 10 mg 09/23/22 15:22 09/24/22 08:22 Cyclobenzaprine Hcl 10 Mg Tablet PO 10 mg Q8H PRN Administration Spasms Diphenhydramine HCl 25 mg 09/23/22 15:22 Dip
== END 2022-09-25 12:57 | disposition home or self-care (01) ==
LOC: ANHSURGERY 15:58 → ANH2MED 15:58
PROVIDERS: Nurse Practitioner Family; Physician Assistant Surgical; Admitting Provider Orthopaedic Surgery; PCP Nurse Practitioner Adult Health; Visit Provider Orthopaedic Surgery
PROC: (CPT 27447; principal; 2022-09-23 11:00)
DX: M17.11 Unilateral primary osteoarthritis, right knee (principal); E78.5 Hyperlipidemia, unspecified; I10 Essential (primary) hypertension; M81.0 Age-related osteoporosis without current pathological fracture; M41.9 Scoliosis, unspecified; Z79.82 Long term (current) use of aspirin; Z79.1 Long term (current) use of non-steroidal anti-inflammatories (NSAID); Z79.51 Long term (current) use of inhaled steroids; Z79.899 Other long term (current) drug therapy; G89.18 Other acute postprocedural pain
CPT/HCPCS: 27447; 64447; 36415; 73560; 80048; 83735; 85025; 86850; 86900; 86901; 97110; 97116; 97161; 97165; 97530; A9270; C1713; C1776; G0378; J0131; J0171; J0690; J1100; J1170; J1885; J2270; J2405; J2704; J2795; J3010; J7120; J7512

== ENCOUNTER 2022-12-25 09:00 | Outpatient (CLI) | payer MEDICARE, BC, SELFPAY ==
[2022-12-25 09:25] LABS: Hematocrit 38.4 % (37.0-47.0); Hemoglobin 12.1 g/dL (12.0-15.0)
[2022-12-25 09:34] LABS: Estimated Glomerular Filt Rate > 60; Glucose 108 mg/dL (65-110)
== END 2022-12-25 09:01 | disposition home or self-care (01) ==
PROVIDERS: PCP Family Medicine; Visit Provider Physician Assistant Surgical
DX: E78.5 Hyperlipidemia, unspecified (principal); R42 Dizziness and giddiness; M17.12 Unilateral primary osteoarthritis, left knee
CPT/HCPCS: 36415; 82040; 82565; 82947; 85014; 85018

== ENCOUNTER 2023-01-20 09:45 | Outpatient (CLI) | payer MEDICARE, BC, SELFPAY ==
[2023-01-20 10:33] LABS: Albumin Level 3.5 g/dL (3.5-5.1)
== END 2023-01-20 09:46 | disposition home or self-care (01) ==
PROVIDERS: PCP Family Medicine; Visit Provider Orthopaedic Surgery
DX: E46 Unspecified protein-calorie malnutrition (principal)
CPT/HCPCS: 36415; 82040

== ENCOUNTER 2023-02-26 11:04 | Outpatient (CLI) | payer MEDICARE, BC, SELFPAY ==
[2023-02-26 11:35] LABS: Basophils Percent Auto 0.1 % (0.2-1.2); Eosinophils Absolute Auto 0.2 K/mm3 (0-0.3); Eosinophils Percent Auto 2.5 % (0-4.4); Hematocrit 40.8 % (37.0-47.0); Hemoglobin 12.9 g/dL (12.0-15.0); Immature Granulocyte Absolute 0.02 K/mm3 (0.00-0.031); Immature Granulocyte Percent A 0.2 % (0-0.5); Lymphocytes Absolute Auto 0.93 K/mm3 (0.9-3.2); Lymphocytes Percent Auto 10.7 % (18.3-44.2); Mean Corpuscular HGB Conc 31.6 g/dl (32-36); Mean Corpuscular Hemoglobin 29.9 pg (26-34); Mean Corpuscular Volume 94.4 fl (80-100); Mean Platelet Volume 8.9 fl (7.4-10.4); Monocytes Absolute Auto 0.1 K/mm3 (0.1-0.6); Monocytes Percent Auto 1.6 % (2.6-8.5); Neutrophils Absolute Auto 7.4 K/mm3 (1.3-6.7); Neutrophils Percent Auto 84.9 % (45.5-73.1); Platelet Count Result 344 k/mm3 (150-375); Red Blood Count 4.32 M/mm3 (4.2-5.4); Red Cell Distribution Width 13.2 % (11.5-14.5); White Blood Count 8.7 K/mm3 (4.5-10.0)
[2023-02-26 11:44] LABS: Urine Cotinine NEGATIVE
[2023-02-26 11:52] LABS: Anion Gap 4 mmol/L (8-16); Blood Urea Nitrogen 17 mg/dL (7-17); Calcium 8.9 mg/dL (8.4-10.2); Carbon Dioxide 31 mmol/L (22-30); Chloride 103 mmol/L (98-107); Estimated Glomerular Filt Rate > 60; Glucose 132 mg/dL (65-110); Potassium 3.6 mmol/L (3.4-5.0); Sodium 138 mmol/L (137-145)
[2023-02-26 11:56] LABS: Hemoglobin A1C 5.4 % (<5.7)
== END 2023-02-26 11:05 | disposition home or self-care (01) ==
PROVIDERS: PCP Family Medicine; Visit Provider Orthopaedic Surgery
DX: Z01.812 Encounter for preprocedural laboratory examination (principal); M17.12 Unilateral primary osteoarthritis, left knee
CPT/HCPCS: 80048; 80307; 83036; 85025; 86850; 86900; 86901; 87081

== ENCOUNTER 2023-02-27 01:23 | Emergency (ER) | payer MEDICARE, BC, SELFPAY ==
[2023-02-27 01:28] VITALS: BP 142/67; PULSE 102; RESP 20; TEMP 36.4; O2SAT 97
--- NOTE | 2023-02-27 04:24 | ED.GENADULT ---
HPI - General Adult General Chief complaint: Skin/Abscess/Foreign Body Stated complaint: rash on neck, itching Time Seen by Provider: 02/27/23 04:14 History of Present Illness HPI narrative: this is an 87-year-old female presenting with a rash x1 day. Patient has an itchy rash that started at the base of her neck and is also in her left axilla. She has been treating with rubbing alcohol with very little success. She denies any other areas of itchiness, wheezing, throat swelling. denies use of new lotions or detergents Excedrin. Patient is very anxious about her upcoming surgery on Thursday for a left knee replacement. Patient denies any other complaints. Related Data Home Medications Medication Instructions Recorded Confirmed losartan 50 mg tablet 50 mg PO QAM 02/13/21 02/24/23 simvastatin 10 mg tablet 10 mg PO DAILY 02/13/21 02/24/23 celecoxib 200 mg capsule 200 mg PO DAILY 03/26/22 02/24/23 primidone 50 mg tablet 50 mg PO BID 03/26/22 02/24/23 hydrochlorothiazide 12.5 mg capsule 12.5 mg PO QAM 07/02/22 02/24/23 acetaminophen 650 mg 650 mg PO BID PRN Pain 08/25/22 02/24/23 tablet,extended release fluticasone propionate 50 1 spray intranasal DAILY PRN 09/09/22 02/24/23 mcg/actuation nasal Congestion spray,suspension aspirin 81 mg tablet,delayed 81 mg PO HS 02/24/23 02/24/23 release cetirizine 10 mg tablet 10 mg PO DAILY PRN Sinus Symptoms 02/24/23 02/24/23 cholecalciferol (vitamin D3) 1,250 1,250 mcg PO WEEKLY 02/24/23 02/24/23 mcg (50,000 unit) capsule Allergies Allergy/AdvReac Type Severity Reaction Status Date / Time alendronate sodium Allergy Mild Chest Pain Verified 02/24/23 10:20 [From Fosamax] grass pollen Allergy Mild Congested Verified 02/24/23 10:20 PMFSH Past Medical History Medical History Arthritis of both knees History of cyst of breast 1979 Hyperlipidemia Hypertension Osteoporosis Scoliosis Tremor Surgical History Surgical History History of total right knee replacement (~09/23/22) Family History Family History Daughter Malignant neoplastic disease Arthritis Son Kidney disease Sibling Malignant neoplastic disease Father Brain tumor, Onset Age: 63 Mother Hypertension Heart disease Malignant tumor of cervix Social History Social History Smoking status: Never smoker Alcohol intake: never Substance use: never Substance use type: does not use Lack of Transportation: No Lack of Food: Never True Current Housing: I Have Housing Concerned About Future Housing: No Difficulty Paying Gas/Electric Bills: No Difficulty Paying for Meds: No Currently Unemployed: No Education: Don't Know Difficulty w/ Childcare or Family Care: No Living arrangements: alone Additional living arrangements comments: SON LIVES WITH PATIENT Gender identity (if verbalized by the patient): Female Sexual Orientation (if Verbalized by the Patient): Straight or Heterosexual Spiritual care concerns: No Exam Narrative: APPEARANCE: No apparent distress. Head: atraumatic. EYES: EOMI, NOSE: Atraumatic NECK: Trachea midline RESPIRATORY: No increased rate of breathing, clear to auscultation bilaterally CARDIOVASCULAR: RRR, ABDOMINAL: Non-distended MUSCULOSKELETAl: No obvious deformities NEURO: Alert. Moving 4/4 extremities SKIN:: Erythema over the base of the neck and left axilla PSYCHIATRIC: Normal affect Course Vital Signs Vital signs: Vital Signs Temperature 97.6 F 02/27/23 01:28 Pulse Rate 102 H 02/27/23 01:28 Respiratory Rate 20 02/27/23 01:28 Blood Pressure 142/67 H 02/27/23 01:28 Pulse Oximetry 97 02/27/23 01:28 Oxygen Delivery Room Air 02/27/23 01:28 Temperature 97.6 F 02/27/23 01:28 Pulse Rate 102
[2023-02-27] MEDS: LORATADINE 10 MG TABLET PO (04:28)
== END 2023-02-27 04:39 | disposition home or self-care (01) ==
PROVIDERS: Emergency Provider Emergency Medicine; PCP Family Medicine
DX: L30.4 Erythema intertrigo (principal); E78.5 Hyperlipidemia, unspecified; I10 Essential (primary) hypertension; M17.0 Bilateral primary osteoarthritis of knee; M81.0 Age-related osteoporosis without current pathological fracture; Z79.82 Long term (current) use of aspirin; Z96.651 Presence of right artificial knee joint
CPT/HCPCS: 99283; A9270

== ENCOUNTER 2023-03-03 00:38 | Day surgery (SDC) | payer MEDICARE, BC, SELFPAY ==
[2023-02-24 10:27] VITALS: BMI 24.0
--- NOTE | 2023-02-24 10:54 | PC.NURSE ---
Report to the Outpatient Waiting Room, entrance under the green pavilion located off [facility], at time __11:30AM on date __03/03/23 . Planned Procedure Time: _1:30PM . Time changes happen often and if your time is changed the preop area will call you the afternoon before. - You and your visitor will be asked to self-screen and do not enter if you have any COVID symptoms. - Only one visitor is requested with a max of two and NO children visitors are allowed at this time. - The patient visitor may be requested to leave or wait in car when not with patient due to distancing restrictions. - A mask is optional within the hospital at this time. Patients may have clear liquids (water, carbonated beverages, clear teas, apple juice) until 3 hours prior to surgery with a maximum of 20 ounces. - No food from midnight until time of surgery Take the following medications with a SIP of water the morning of surgery: ___PRIMIDONE, FLONASE NASAL SPRAY NEEDED DO NOT STOP ANY OF YOUR OTHER PRESCRIPTION MEDICATIONS PRIOR TO SURGERY ?EXCEPT THE FOLLOWING Medications to discontinue per physician ___HOLD ASPIRIN AND VITAMINS/SUPPLEMENTS 7 DAYS PRE-OP PER DR DING(PER PATIENT) Date to take last dose 02/24/23 Please no make-up, nail japanese, hairspray, perfume, deodorant, or body powder the day of surgery. No jewelry (including any body piercings) or valuables the day of surgery, leave them at home. Please take a shower or bath the night before, or the morning of, surgery with an antibacterial soap. Wear comfortable, loose fitting clothing. Children are encouraged to wear pajamas. - Jewelry must be removed prior to entering the operating room. Rings and piercings that are not removed may be cut off. - The hospital will not accept responsibility for valuables. - Please leave all valuables, including medications, at home the day of surgery. If you are going home after surgery, a licensed hydraulic lift driver must drive you home. - NO public transportation without another adult if you receive anesthesia. - We recommend that an adult stay with you for 24 hours following discharge. - We also recommend that you do not drive, make important decision, drink alcoholic beverages, or take any drugs that were not prescribed by your health care provider for at least 24 hours after your discharge time. Follow any additional instructions given to you from your surgeon. If you or anyone in your household have experienced Covid symptoms in the past week, please notify your surgeon or the nurse liaison at the phone number below for possible testing. Telephone instructions given to __PATIENT and asked if any additional questions and then verbalized understanding. Patient advised to call surgeon office or pre surgery nurse liaison [phone] if any additional questions.
[2023-03-03] VITALS (14 sets, daily range): BP systolic 103–141; BP diastolic 50–80; PULSE 70–89; RESP 12–20; TEMP 36.2–37.1; O2SAT 96–100
--- NOTE | ~2023-03-03 | XR_ITS ---
EXAMINATION: [id number] DATE: 03/03/2023 14:56 INDICATION: Total left knee arthroplasty. Postop. TECHNIQUE: 2 views of left knee were obtained. COMPARISON: Left knee radiographs 06/05/2022 FINDINGS: There is a total left knee arthroplasty with patellar resurfacing in near-anatomic alignmen t. No fracture. There is gas in the knee joint and soft tissues, consistent with recent surgery. IMPRESSION: 1. Total left knee arthroplasty in near-anatomic alignment. Reviewed, dictated and finalized at location A.
--- NOTE | 2023-03-03 07:00 | WPDHPUPDATE1 ---
History and Physical Update Update Date/Time: 03/03/23 07:00 History and Physical has been reviewed, including an updated exam of the patient. There are NO changes in the patient's condition. Risks, benefits, and alternatives have been discussed and questions answered. Patient agrees to proceed with procedure.
[2023-03-03] MEDS: LACTATED RINGERS 1,000 ML 30 ML IV CONT ×2 (10:50→14:47)
--- NOTE | 2023-03-03 11:28 | WPDANESEPPF ---
Anes - Initial Pre Proc Eval Procedure: Operation Date: 03/03/23 13:30 Proposed Procedures p Left Total Knee Arthroplasty - Zach Nielsen MD Date/Time: 03/03/23 11:28 Surgeon: Zach Nielsen MD Pre Op Diagnosis: primary oa left knee Patient Data Age: 87 Gender: F Height: 1.5 m Weight: 54 kg Allergies Allergy/AdvReac Type Severity Reaction Status Date / Time alendronate sodium Allergy Mild Chest Pain Verified 03/03/23 11:25 [From Fosamax] grass pollen Allergy Mild Congested Verified 03/03/23 11:25 Home Medications Medication Instructions Recorded Confirmed Type losartan 50 mg tablet 50 mg PO QAM 02/13/21 03/03/23 History simvastatin 10 mg tablet 10 mg PO DAILY 02/13/21 03/03/23 History celecoxib 200 mg capsule 200 mg PO DAILY 03/26/22 03/03/23 History primidone 50 mg tablet 50 mg PO BID 03/26/22 03/03/23 History hydrochlorothiazide 12.5 mg capsule 12.5 mg PO QAM 07/02/22 03/03/23 History acetaminophen 650 mg 650 mg PO BID PRN Pain 08/25/22 03/03/23 History tablet,extended release fluticasone propionate 50 1 spray intranasal DAILY PRN 09/09/22 03/03/23 History mcg/actuation nasal Congestion spray,suspension aspirin 81 mg tablet,delayed 81 mg PO HS 02/24/23 03/03/23 History release cetirizine 10 mg tablet 10 mg PO DAILY PRN Sinus Symptoms 02/24/23 02/24/23 History cholecalciferol (vitamin D3) 1,250 1,250 mcg PO WEEKLY 02/24/23 03/03/23 History mcg (50,000 unit) capsule clotrimazole 1 % topical cream 1 applic topical BID 2 weeks #30 02/27/23 Rx grams loratadine 10 mg tablet (Claritin) 10 mg PO DAILY PRN allergic 02/27/23 03/03/23 Rx symptoms #30 tabs Patient hx anesthesia problems: none Family hx anesthesia problems: none Results Review: All pre-operative results and documents have been reviewed as part of the pre-operative evaluation. [facility] Past Medical History Medical History Arthritis of both knees History of cyst of breast 1979 Hyperlipidemia Hypertension Osteoporosis Scoliosis Tremor Surgical History Surgical History History of total right knee replacement (~09/23/22) Family History Family History Daughter Malignant neoplastic disease Arthritis Son Kidney disease Sibling Malignant neoplastic disease Father Brain tumor, Onset Age: 63 Mother Hypertension Heart disease Malignant tumor of cervix Social History Social History Smoking status: Never smoker Alcohol intake: never Substance use: never Substance use type: does not use Lack of Transportation: No Lack of Food: Never True Current Housing: I Have Housing Concerned About Future Housing: No Difficulty Paying Gas/Electric Bills: No Difficulty Paying for Meds: No Currently Unemployed: No Education: Don't Know Difficulty w/ Childcare or Family Care: No Living arrangements: alone Additional living arrangements comments: SON LIVES WITH PATIENT Gender identity (if verbalized by the patient): Female Sexual Orientation (if Verbalized by the Patient): Straight or Heterosexual Spiritual care concerns: No Anes - Eval Final PreProcedure Day of Procedure 03/03/23 11:28 Patient weight: normal Heart: regular rate and rhythm Lungs: clear to auscultation Airway: Mallampati scale class III Neurological: alert and oriented Last oral intake: >/= 8 hours ASA classification: II Emergent: no Anesthetic plan: proceed Anesthesia type and monitoring: general LMA and standard monitoring Results Review: All pre-operative results and documents have been reviewed as part of the pre-operative evaluation. Informed Consent: The patient's anesthetic plan and its attendant risks and benefits were discussed with the patient/family/POA. Questions
--- NOTE | 2023-03-03 11:52 | WPDANESPNB ---
Anes - Peripheral Nerve Block Date/Time: 03/03/23 11:52 I have discussed with the patient/family/POA the placement of a peripheral nerve block for post-operative pain management, including associated risks, benefits, complications, and side effects. Alternative methods of post-operative analgesia were detailed. Questions were solicited and answers provided to the satisfaction of the patient/family/POA. Time-Out: A pre-procedural Time-Out was completed immediately before starting the procedure and confirmed: Patient Identification, Site, Procedure, Patient Position and the Availability of Requisite Equipment. Clinical Indications: Acute post-operative pain management requested by the operative surgeon. Nerve Block Insertion Note Anes-nerve block: adductor canal left Patient position: supine Skin prep: chlorhexidine Needle: 22 gauge, stimulating, insulated echogenic needle. Needle length: 80 mm Technique: ultrasound Injectate: bupivacaine 0.5% with epi 5 mcg/ml (30cc - no epi) Observations: tolerated well Complications: none Procedure start time:: 1233 Procedure end time:: 123
[2023-03-03] MEDS: ceFAZolin 2 GM/D5W 50 ML 2 GM/50 ML BAG IVPB ×2 (12:59→21:20)
[2023-03-03] MEDS: GENTAMICIN BONE CEMENT REFOBACIN 1 EACH TOPICAL (14:16)
--- NOTE | 2023-03-03 16:51 | ADMGEN ---
This patient, Joann Mckinley, was admitted to 2 Medical Room 242-01. Patient/family oriented to hospital policies and general routines including ID bracelet, bed and alarms, visiting hours, pain management, procedures, bathroom and other care routines, personal items, smoking policy, room service/diet, and visiting hours. Information on how to activate the Rapid Response Team has been discussed. Patient/Family are encouraged to report perceived risks to care and to ask questions if they do not understand what they are told or what they should do.
--- NOTE | 2023-03-03 17:35 | P.OP_ITS ---
Procedure Note - Detailed Date of Procedure 03/03/23 Pre-op Diagnosis primary oa left knee Post-op Diagnosis Same Procedure Performed Total knee arthroplasty, left. Surgeon Zach Nielsen MD Anesthesia General and Regional (subsartorial block) Findings Poor bone quality. Moderate medial release. Standard bony resections. All poly tibia used. Tritanium ingrowth patella with very minimal bony resection of the patella. Description of Procedure The patient was brought to the operating room. A general anesthetic was administered. The leg was prepped and draped in the usual sterile fashion. The limb was elevated and the tourniquet inflated to 300 mmHg. A longitudinal incision was created along the medial border of the patella and patellar tendon, and a trivector approach to the knee was performed. A moderate medial release was taken. The knee was then flexed. The osteophytes were carefully removed. The intramedullary guide was placed in the femoral canal. The distal femoral resection was then taken with the oscillating saw. The collateral ligaments were carefully protected. The tibia was carefully exposed. The jig was applied, and the proximal tibia was resected according to preoperative plan. The knee was balanced in extension. Appropriate releases were taken where needed. The anterior cruciate ligament and meniscal remnants were removed. The posterior cruciate ligament was preserved. The patella was measured. Patellar resection was carried out with the oscillating saw. The lug holes drilled. The femur was sized and rotation assessed using a combination of gap balancing, posterior referencing, and the AP axis. The 4 in 1 cutting block was used to finish the femoral cuts after equal gaps were assured. The osteophytes were carefully removed from the back of the knee. The knee was copiously irrigated with antibiotic solution periodically throughout the procedure. The meniscal remnants were removed. The spacer block was used to confirm equal flexion and extension gaps. The tibia was sized and broached. The bony surfaces were prepared for cementing with pulsatile lavage. The real tibial and femoral components were cemented into position. The patella was Press-Fit. Excess cement was carefully removed. Patellar tracking was carefully assessed. No additional releases were required. Dilute sterile Betadine soak performed for three minutes. Copious irrigation then performed. The wound was closed with #1 Vicryl suture, #2, 2-0, and 3-0 barbed suture, followed by Steri-Strips. A sterile bulky dressing was applied. Meticulous hemostasis was maintained throughout the procedure. The bipolar cautery device was used. The pain relieving mixture was injected into the periarticular tissues during the procedure. There were no complications. The patient was extubated and brought to the recovery room in stable condition after the application of sterile dressing with Daniel bandage. Implants [employer] Triathlon knee system, all-polyethylene cemented tibia size 2, 9mm. Cemented cruciate retaining femoral component size 2, Asymmetric tritanium press fit patella component. Estimated Blood Loss -50.0 Drains No Pathology None sent Complications No immediate complications Condition Stable Disposition PACU [facility] Billing Surgery - Charge Forward: Surgery Billing
[2023-03-03] MEDS: SENNA/DOCUSATE SODIUM TABLET 2 TAB PO (17:59)
[2023-03-03] MEDS: ASPIRIN 81 MG ENTERIC TABLET PO (17:59)
[2023-03-03] MEDS: PRIMIDONE 50 MG TABLET PO (18:00)
[2023-03-03] MEDS: ACETAMINOPHEN 500 MG TABLET 1000 MG PO (18:00)
[2023-03-03] MEDS: FAMOTIDINE 20 MG TABLET PO (21:20)
[2023-03-04 03:25] VITALS: BP 123/58; PULSE 66; RESP 18; TEMP 36.6; O2SAT 99
[2023-03-04] MEDS: oxyCODONE HCL (*CRX) 5 MG TAB IR PO ×2 (03:35→16:45)
[2023-03-04 05:33] LABS: Basophils Percent Auto 0.1 % (0.2-1.2); Eosinophils Absolute Auto 0.6 K/mm3 (0-0.3); Eosinophils Percent Auto 6.8 % (0-4.4); Hematocrit 30.9 % (37.0-47.0); Hemoglobin 9.8 g/dL (12.0-15.0); Immature Granulocyte Absolute 0.05 K/mm3 (0.00-0.031); Immature Granulocyte Percent A 0.6 % (0-0.5); Lymphocytes Absolute Auto 1.77 K/mm3 (0.9-3.2); Lymphocytes Percent Auto 19.7 % (18.3-44.2); Mean Corpuscular HGB Conc 31.7 g/dl (32-36); Mean Corpuscular Hemoglobin 29.3 pg (26-34); Mean Corpuscular Volume 92.5 fl (80-100); Mean Platelet Volume 9.3 fl (7.4-10.4); Monocytes Absolute Auto 0.4 K/mm3 (0.1-0.6); Monocytes Percent Auto 4.1 % (2.6-8.5); Neutrophils Absolute Auto 6.2 K/mm3 (1.3-6.7); Neutrophils Percent Auto 68.7 % (45.5-73.1); Platelet Count Result 261 k/mm3 (150-375); Red Blood Count 3.34 M/mm3 (4.2-5.4)
[2023-03-04 05:52] LABS: Anion Gap 3 mmol/L (8-16); Blood Urea Nitrogen 17 mg/dL (7-17); Calcium 7.6 mg/dL (8.4-10.2); Carbon Dioxide 28 mmol/L (22-30); Chloride 102 mmol/L (98-107); Estimated Glomerular Filt Rate > 60; Glucose 94 mg/dL (65-110); Potassium 3.8 mmol/L (3.4-5.0); Sodium 133 mmol/L (137-145)
[2023-03-04] MEDS: ACETAMINOPHEN 500 MG TABLET 1000 MG PO ×2 (05:55→12:15)
[2023-03-04] MEDS: CYCLOBENZAPRINE HCL 10 MG TABLET PO (05:55)
[2023-03-04] MEDS: ceFAZolin 2 GM/D5W 50 ML 2 GM/50 ML BAG IVPB ×2 (05:56→12:15)
[2023-03-04] MEDS: predniSONE 5 MG TABLET PO (09:15)
[2023-03-04] MEDS: FAMOTIDINE 20 MG TABLET PO (09:15)
[2023-03-04] MEDS: SENNA/DOCUSATE SODIUM TABLET 2 TAB PO (09:15)
[2023-03-04] MEDS: LOSARTAN POTASSIUM 50 MG TABLET PO (09:15)
[2023-03-04] MEDS: CELECOXIB 200 MG CAPSULE PO (09:15)
[2023-03-04] MEDS: hydroCHLOROthiazide 12.5 MG CAPSULE PO (09:15)
[2023-03-04] MEDS: ASPIRIN 81 MG ENTERIC TABLET PO ×2 (09:15→16:46)
[2023-03-04] MEDS: polyethylene glycoL 3350 17 GM POWD.PACK PO (09:16)
[2023-03-04] MEDS: PRIMIDONE 50 MG TABLET PO ×2 (09:16→16:46)
[2023-03-04] MEDS: SIMVASTATIN 10 MG TABLET PO (09:16)
[2023-03-04 10:43] VITALS: BP 131/66; PULSE 76; RESP 18; TEMP 36.7; O2SAT 95
[2023-03-04 11:16] VITALS: BMI 23.9
[2023-03-04 13:57] VITALS: BP 129/61; PULSE 62; RESP 14; TEMP 36; O2SAT 97
--- NOTE | 2023-03-04 13:59 | PCCCNOTE ---
On 03/04/23, the student, [Catalina Tavera ], provided care and completed [facility] documentation on this patient. I have reviewed the student's documentation and agree with the findings.
--- NOTE | 2023-03-04 14:28 | P.PNAN_ITS ---
Anes - Prog Note Post-Op Date/Time: 03/04/23 14:28 Cardiovascular status: normal Respiratory status: normal Airway patency: baseline Mental status: baseline Post-Op hydration status: normal Vital Signs: Last Vital Signs Temp 96.8 F L 03/04/23 13:57 Pulse 62 03/04/23 13:57 Resp 14 03/04/23 13:57 BP 129/61 03/04/23 13:57 Pulse Ox 97 03/04/23 13:57 O2 Del Method Room Air 03/04/23 08:28 O2 Flow Rate 8 03/03/23 15:20 Pain Score (VAS): 3-4 I/O: Intake & Output 03/03/23 03/04/23 03/04/23 23:59 07:59 15:59 Intake Total 640 290 530 Output Total 1 Balance 640 289 530 Laboratory Tests 03/04/23 04:54 03/04/23 04:54 03/04/23 03/04/23 04:54 04:54 WBC 9.0 RBC 3.34 L Hgb 9.8 L D Hct 30.9 L MCV 92.5 MCH 29.3 MCHC 31.7 L RDW 13.0 Plt Count 261 MPV 9.3 Immature Gran % (Auto) 0.6 H Neut % (Auto) 68.7 Lymph % (Auto) 19.7 Snyder % (Auto) 4.1 Eos % (Auto) 6.8 H Baso % (Auto) 0.1 L Lymph # (Auto) 1.77 Snyder # (Auto) 0.4 Eos # (Auto) 0.6 H Baso # (Auto) 0.0 Abs Immat Gran (auto) 0.05 H Absolute Neuts (auto) 6.2 Absolute Nucleated RBC 0.0 Nucleated RBC % 0.0 Sodium 133 L Potassium 3.8 Chloride 102 Carbon Dioxide 28 Anion Gap 3 L BUN 17 Creatinine 0.70 Estim Creat Clear Calc Not Reportable Estimated GFR > 60 Glucose 94 Calcium 7.6 L Post-procedural complaints: none Patient Feedback: Patient satisfied with anesthetic care.
--- NOTE | 2023-03-04 14:55 | PM.DS ---
DS: Admitting Diagnosis Discharge Date 03/04/23 Admitting Diagnosis OA knee Left DS: Discharge Diagnosis Discharge Diagnosis (1) Status post total left knee replacement: Code(s): Z96.652 - Presence of left artificial knee joint Status: Acute Assessment and Plan: Postop day 1: Left total knee arthroplasty. Patient tolerated procedure well. No complications. Pain manageable with pain medication. No numbness or tingling. We had a lengthy discussion regarding postoperative wound care, limitations, expectations, and exercises. Patient shows good understanding. She has had initial physical therapy and is tolerating it well. DVT prophylaxis: 81 mg baby aspirin b.i.d. for 14 days. Pain medication: Percocet. Celebrex. Prednisone. Patient has followup appointment with Dr. Nielsen in 3 weeks. DS: Summary Hospital Course Reason for hospitalization: Total knee arthroplasty Hospital Course: Patient tolerated procedure well. Has had initial PT/OT. Status at Discharge Functional status at discharge: uses cane/walker Overall status at discharge: patient is progressing back to baseline Time Spent with Patient Time attestation: Total time spent providing and/or coordinating discharge services: Exam Narrative: Elderly 87-year-old normal weight female. Resting comfortably in chair. Alert and oriented x3. No acute distress. Wearing compression socks bilaterally. Dressing intact with out drainage. Mild swelling. No ecchymosis. No erythema. No hematoma. Range of motion limited due to pain. Calf nontender. Neurologic status intact. No varicosities. Distal pulses palpable. DS: Data Data Completed and Pending Labs on day of discharge: Labs from last 24 hours 03/04/23 03/04/23 04:54 04:54 WBC 9.0 RBC 3.34 L Hgb 9.8 L D Hct 30.9 L MCV 92.5 MCH 29.3 MCHC 31.7 L RDW 13.0 Plt Count 261 MPV 9.3 Immature Gran % (Auto) 0.6 H Neut % (Auto) 68.7 Lymph % (Auto) 19.7 [place] % (Auto) 4.1 Eos % (Auto) 6.8 H Baso % (Auto) 0.1 L Lymph # (Auto) 1.77 [place] # (Auto) 0.4 Eos # (Auto) 0.6 H Baso # (Auto) 0.0 Abs Immat Gran (auto) 0.05 H Absolute Neuts (auto) 6.2 Absolute Nucleated RBC 0.0 Nucleated RBC % 0.0 Sodium 133 L Potassium 3.8 Chloride 102 Carbon Dioxide 28 Anion Gap 3 L BUN 17 Creatinine 0.70 Estim Creat Clear Calc Not Reportable Estimated GFR > 60 Glucose 94 Calcium 7.6 L Discharge Plan Discharge Patient Disposition: Home, Self-Care Discharge Instructions: See green instruction sheets Stand Alone Forms: General Discharge Instructions Follow-up/Referrals: Ada Oswald PA [Physician Caption Writer] - Discharge Medications: New prednisone 5 mg tablet 5 mg PO DAILY 21 Days Qty: 21 0RF aspirin 81 mg tablet,delayed release (DR/EC) 81 mg PO BID 14 Days Qty: 28 0RF oxycodone-acetaminophen 5-325 mg tablet 1 - 2 tablet PO Q4-6H MDD 6 PRN (Reason: pain) Qty: 30 0RF Continued losartan 50 mg tablet 50 mg PO QAM Rx Instructions: TAKES IN AM simvastatin 10 mg tablet 10 mg PO DAILY hydrochlorothiazide 12.5 mg capsule 12.5 mg PO QAM fluticasone propionate 50 mcg/actuation spray,suspension 1 spray intranasal DAILY PRN (Reason: Congestion) cetirizine 10 mg tablet 10 mg PO DAILY PRN (Reason: Sinus Symptoms) cholecalciferol (vitamin D3) 1,250 mcg (50,000 unit) capsule 1,250 mcg PO WEEKLY Rx Instructions: ON THURSDAY celecoxib 200 mg Capsule 200 mg PO DAILY Rx Instructions: TAKES IN AM primidone 50 mg Tablet 50 mg PO BID clotrimazole 1 % cream 1 applic topical BID 14 Days Qty: 30 0RF loratadine [Claritin] 10 mg tablet 10 mg PO DAILY PRN (Reason: allergic symptoms) Qty: 30 0RF Held aspirin 81 mg tablet,delayed release (DR/EC) 81 mg PO HS Hold Instructions: Resume on 03/17/23. Take
== END 2023-03-04 17:50 | disposition home or self-care (01) ==
LOC: ANHSURGERY 13:08 → ANH2MED 16:34
PROVIDERS: Physician Assistant Surgical; PCP Family Medicine; Visit Provider Orthopaedic Surgery
PROC: (CPT 27447; principal; 2023-03-03 13:30)
DX: M17.12 Unilateral primary osteoarthritis, left knee (principal); G89.18 Other acute postprocedural pain; I10 Essential (primary) hypertension; E78.5 Hyperlipidemia, unspecified; M81.0 Age-related osteoporosis without current pathological fracture; Z79.82 Long term (current) use of aspirin
CPT/HCPCS: 27447; 64447; 36415; 73560; 80048; 85025; 97110; 97116; 97161; 97165; 97535; A9270; C1713; J0171; J0690; J1100; J1885; J2270; J2405; J2704; J2795; J3010; J7120; J7512

== ENCOUNTER 2023-06-04 13:20 | Outpatient (CLI) | payer MEDICARE, BC, SELFPAY | END 2023-06-04 13:21 | disposition home or self-care (01) | PROVIDERS: PCP Family Medicine; Visit Provider Otolaryngology | DX: H90.3 Sensorineural hearing loss, bilateral (principal) | CPT/HCPCS: 92557; 92567 ==

== ENCOUNTER 2023-09-03 12:00 | Outpatient (RCR) | payer MEDICARE, BC, SELFPAY | END 2023-09-03 23:59 | disposition home or self-care (01) | LOC: ANHAUDIO 12:00 | PROVIDERS: PCP Family Medicine; Visit Provider Family Medicine | DX: Z46.1 Encounter for fitting and adjustment of hearing aid (principal) | CPT/HCPCS: 99199; V5261 ==

== ENCOUNTER 2023-10-19 08:22 | Emergency (ER) | payer MEDICARE, BC, SELFPAY ==
--- NOTE | 2023-10-19 08:34 | ED.FEMALEGU ---
HPI - Female Genitourinary General Chief complaint: Urogenital-Female Stated complaint: urinary issue Time Seen by Provider: 10/19/23 08:35 Source: patient Mode of arrival: ambulatory Limitations: no limitations History of Present Illness HPI Narrative: 88-year-old female presents with complaint urinary frequency, dysuria for 2 days. Afebrile. No abdominal or back pain. Concern for urinary tract infection. Patient alert and well-appearing. All systems reviewed and negative except as noted above. Related Data Home Medications Medication Instructions Recorded Confirmed losartan 50 mg tablet 50 mg PO QAM 02/13/21 10/19/23 simvastatin 10 mg tablet 10 mg PO DAILY 02/13/21 10/19/23 primidone 50 mg tablet 50 mg PO BID 03/26/22 10/19/23 hydrochlorothiazide 12.5 mg capsule 12.5 mg PO QAM 07/02/22 10/19/23 fluticasone propionate 50 1 spray intranasal DAILY PRN 09/09/22 10/19/23 mcg/actuation nasal Congestion spray,suspension cholecalciferol (vitamin D3) 1,250 1,250 mcg PO WEEKLY 02/24/23 10/19/23 mcg (50,000 unit) capsule Allergies Allergy/AdvReac Type Severity Reaction Status Date / Time alendronate sodium Allergy Mild Chest Pain Verified 10/19/23 08:57 [From Fosamax] grass pollen Allergy Mild Congested Verified 10/19/23 08:57 Review of Systems Review of Systems: CONSTITUTIONAL: Denies fever, chills, or sweats. EYES: Denies visual changes, redness, or discharge. ENT: Denies rhinorrhea, congestion, sore throat, or otalgia. CARDIOVASCULAR: Denies chest pain, palpitations, or edema. RESPIRATORY: Denies cough or dyspnea. GASTROINTESTINAL: Denies abdominal pain, nausea, vomiting, or diarrhea. GENITOURINARY: Reports dysuria, frequency. Denies hematuria. SKIN: Denies rash or itching. MUSCULOSKELETAL: Denies back pain, joint pain, or myalgia. NEUROLOGIC: Denies headache, numbness, or weakness. PSYCHIATRIC: Denies anxiety or depression. All other systems reviewed are negative, except as documented in HPI. [facility] Past Medical History Medical History Arthritis of both knees History of cyst of breast 1979 Hyperlipidemia Hypertension Osteoporosis Scoliosis Tremor Surgical History Surgical History History of total left knee replacement (~03/03/23) History of total right knee replacement (~09/23/22) Family History Family History Daughter Malignant neoplastic disease Arthritis Son Kidney disease Sibling Malignant neoplastic disease Father Brain tumor, Onset Age: 63 Mother Hypertension Heart disease Malignant tumor of cervix Social History Social History Smoking status: Never smoker Alcohol intake: never Substance use: never Substance use type: does not use Lack of Transportation: No Lack of Food: Never True Current Housing: I Have Housing Concerned About Future Housing: No Difficulty Paying Gas/Electric Bills: No Difficulty Paying for Meds: No Currently Unemployed: No Education: High School Diploma/GED Difficulty w/ Childcare or Family Care: No Living arrangements: alone Additional living arrangements comments: SON LIVES WITH PATIENT Gender identity (if verbalized by the patient): Female Sexual Orientation (if Verbalized by the Patient): Straight or Heterosexual Spiritual care concerns: No Comments At time of signature, agree with nursing past medical, surgical, social and family history. There is no relevant family history pertinent to the presenting complaint. Exam Narrative: GENERAL: This is a well-nourished, well-developed patient, in no apparent distress. HEAD: normocephalic, atraumatic. EYES: PERRL. Sclera clear/white. Vision is grossly intact. EARS: External ears normal NOSE: External nose normal NECK: Neck singer
[2023-10-19 08:42] VITALS: BP 129/44; PULSE 85; RESP 16; TEMP 36.8; O2SAT 98
== END 2023-10-19 10:46 | disposition home or self-care (01) ==
PROVIDERS: Emergency Provider Nurse Practitioner Family; PCP Family Medicine
DX: N39.0 Urinary tract infection, site not specified (principal); E78.5 Hyperlipidemia, unspecified; I10 Essential (primary) hypertension; Z79.899 Other long term (current) drug therapy
CPT/HCPCS: 81003; 87077; 87086; 87186; 99213; G0463

== ENCOUNTER 2023-10-21 11:22 | Emergency (ER) | payer MEDICARE, BC, SELFPAY ==
[2023-10-21] VITALS (10 sets, daily range): BP systolic 139–142; BP diastolic 65–69; PULSE 63–74; RESP 11–16; TEMP 36.2; O2SAT 100
--- NOTE | ~2023-10-21 | CT_ITS ---
EXAMINATION: CT brain wo con DATE: 10/21/2023 13:10 INDICATION: Head injury. Dizziness. TECHNIQUE: Computed tomography (CT) of the head was performed without intravenous contrast. The mA wa s adjusted according to patient size. Iterative reconstruction technique was employed. The dose-lengt h product was 605.33 mGy-cm. COMPARISON: Head CT 03/26/2022 FINDINGS: There are scattered areas of low attenuation in the cerebral white matter. There is no intr acranial hemorrhage, acute infarction, or abnormal intracranial mass lesion. The ventricles are richar l in size. There are likely changes of ocular lens replacement surgeries. There is mild mucosal thick ening in the paranasal sinuses. There is a right mastoid effusion. IMPRESSION: 1. Stable moderate nonspecific cerebral white matter disease, which likely represents chronic small v essel ischemic disease. Reviewed, dictated and finalized at location A. AL PROGRAM MANAGER IMPRESSION: 1. Stable moderate nonspecific cerebral white matter disease, which likely repr esents chronic small vessel ischemic disease.
--- NOTE | 2023-10-21 11:44 | ECG_ITS ---
Measurements Intervals [place] Rate: 68 P: 61 WV: 190 QRS: 85 QRSD: 129 T: 14 QT: 406 QTc: 434 Interpretive Statements SINUS RHYTHM RIGHT BUNDLE BRANCH BLOCK BASELINE ARTIFACT- I, II, III, AVR, AVL, AVF, V4-V6 ABNORMAL ECG COMPARED TO ECG 03/26/2022 09:29:32 NO SIGNIFICANT CHANGES Electronically Signed On 10-21-2023 12:46:57 ELECTRIC INSTALLER by Humberto Aly D.O.
[2023-10-21 11:57] LABS: Basophils Percent Auto 0.2 % (0.2-1.2); Eosinophils Absolute Auto 0.3 K/mm3 (0-0.3); Eosinophils Percent Auto 5.4 % (0-4.4); Hematocrit 36.9 % (37.0-47.0); Hemoglobin 11.8 g/dL (12.0-15.0); Immature Granulocyte Absolute 0.03 K/mm3 (0.00-0.031); Immature Granulocyte Percent A 0.5 % (0-0.5); Lymphocytes Percent Auto 17.9 % (18.3-44.2); Mean Corpuscular Hemoglobin 31.7 pg (26-34); Mean Corpuscular Volume 99.2 fl (80-100); Mean Platelet Volume 9.1 fl (7.4-10.4); Monocytes Absolute Auto 0.2 K/mm3 (0.1-0.6); Monocytes Percent Auto 3.1 % (2.6-8.5); Neutrophils Absolute Auto 4.5 K/mm3 (1.3-6.7); Neutrophils Percent Auto 72.9 % (45.5-73.1); Platelet Count Result 259 k/mm3 (150-375); Red Blood Count 3.72 M/mm3 (4.2-5.4); Red Cell Distribution Width 14.6 % (11.5-14.5); White Blood Count 6.2 K/mm3 (4.5-10.0)
[2023-10-21 12:10] LABS: Alanine Aminotransferase 10 U/L (6-35); Albumin Level 3.3 g/dL (3.5-5.1); Alkaline Phosphatase 67 U/L (38-126); Anion Gap 8 mmol/L (8-16); Aspartate Amino Transferase 22 U/L (14-36); Bilirubin,Total 0.3 mg/dL (0.2-1.3); Blood Urea Nitrogen 16 mg/dL (7-17); Calcium 8.4 mg/dL (8.4-10.2); Carbon Dioxide 25 mmol/L (22-30); Chloride 100 mmol/L (98-107); Estimated Glomerular Filt Rate > 60; Glucose 81 mg/dL (65-110); Sodium 133 mmol/L (137-145)
--- NOTE | 2023-10-21 12:24 | ED.DIZZY ---
HPI - Dizziness General Chief Complaint: Dizziness Stated Complaint: dizziness Time Seen by Provider: 10/21/23 12:03 History of Present Illness HPI Narrative: Patient is an 88-year-old female with history of hypertension, vertigo here with dizziness. Patient states that 4 days ago she began having some urinary symptoms. She notes that she had increased urinary frequency and burning with urination. She went to an urgent care the following day where she was diagnosed with urinary tract infection and started on ciprofloxacin and Pyridium. She states that her urinary symptoms seemed to have improved. She last took Pyridium yesterday. She continues to take her antibiotics. She does note that in the past she has a history of vertigo, has seen Dr. Figueroa for this. She has been taught different maneuvers by physical therapy to help with her vertigo and she has been doing these at home which seemed to be helping. The dizziness started around the same time as her urinary symptoms. She does note that she was prescribed a Zyrtec in the past for her vertigo and she stopped taking this when her urinary symptoms began 4 days ago. Today her dizziness was severe when she was walking around to go to the bathroom and when she got back to her bed she notes that she fell onto her bed. She fell down onto her left hip, has been able to ambulate without difficulty. Does not believe that she hit her head. Is not on any blood thinners. She denies any chest pain or shortness of breath. She describes the dizziness as her spinning and it seems to be worse with changes of positions. She notes that from sitting to standing it seems to get worse but does improve after standing still and catching her bearings. She denies any change in p.o. intake. No associated numbness or weakness in arms or legs. Related Data Home Medications Medication Instructions Recorded Confirmed losartan 50 mg tablet 50 mg PO QAM 02/13/21 10/19/23 simvastatin 10 mg tablet 10 mg PO DAILY 02/13/21 10/19/23 primidone 50 mg tablet 50 mg PO BID 03/26/22 10/19/23 hydrochlorothiazide 12.5 mg capsule 12.5 mg PO QAM 07/02/22 10/19/23 fluticasone propionate 50 1 spray intranasal DAILY PRN 09/09/22 10/19/23 mcg/actuation nasal Congestion spray,suspension cholecalciferol (vitamin D3) 1,250 1,250 mcg PO WEEKLY 02/24/23 10/19/23 mcg (50,000 unit) capsule Allergies Allergy/AdvReac Type Severity Reaction Status Date / Time alendronate sodium Allergy Mild Chest Pain Verified 10/19/23 08:57 [From Fosamax] grass pollen Allergy Mild Congested Verified 10/19/23 08:57 Review of Systems Review of Systems: All systems reviewed & are unremarkable except as noted in HPI and below PMFSH Past Medical History Medical History Arthritis of both knees History of cyst of breast 1978 Hyperlipidemia Hypertension Osteoporosis Scoliosis Tremor Surgical History Surgical History History of total left knee replacement (~03/03/23) History of total right knee replacement (~09/23/22) Family History Family History Daughter Malignant neoplastic disease Arthritis Son Kidney disease Sibling Malignant neoplastic disease Father Brain tumor, Onset Age: 63 Mother Hypertension Heart disease Malignant tumor of cervix Social History Social History Smoking status: Never smoker Alcohol intake: never Substance use: never Substance use type: does not use Lack of Transportation: No Lack of Food: Never True Current Housing: I Have Housing Concerned About Future Housing: No Difficulty Paying Gas/Electric Bills: No Difficulty Paying for Meds: No Currently Unemployed: No Education: High School Diploma/GED Difficulty w/ Childcare or Family Care: No [place]
[2023-10-21 12:49] LABS: Appearance Urine Cloudy (Clear); Bacteria Urine None Seen /hpf; Bilirubin Urine 1+ (Negative); Blood Urine Trace (Negative); Color Urine Dark Yellow (Yellow); Glucose Urine UA Negative (Negative); Hyaline Casts Urine Present /lpf; Ketones Urine Trace mg/dL (Negative); Leukocyte Esterase Ur Trace LEU/UL (Negative); Need Manual Microscopic Reviewed; Nitrate Urine Positive (Negative); Protein Urine Trace mg/dL (Negative); Specific Grav Ur 1.019 (1.001-1.035); Squamous Epithelial Cell Urine Few /hpf (Few)
[2023-10-21 12:51] LABS: Add Urine Microscopic? YES
[2023-10-21] MEDS: SODIUM CHLORIDE 0.9% IV 500 ML 999 ML IV CONT (12:57)
[2023-10-21] MEDS: MECLIZINE HCL 25 MG TABLET PO (12:57)
[2023-10-21 13:02] LABS: Troponin I < 0.012 ng/mL (0.000-0.034)
--- NOTE | 2023-10-21 15:12 | PC.NURSE ---
ambulated pt at this time. pt denies feeling dizzy and felt fine walking
== END 2023-10-21 15:35 | disposition home or self-care (01) ==
PROVIDERS: Emergency Medicine; Emergency Provider Student in an Organized Health Care Education/Training Program; PCP Family Medicine
DX: R42 Dizziness and giddiness (principal); N39.0 Urinary tract infection, site not specified; E78.5 Hyperlipidemia, unspecified; I10 Essential (primary) hypertension; Z79.899 Other long term (current) drug therapy; W19.XXXA Unspecified fall, initial encounter
CPT/HCPCS: 36415; 70450; 80053; 81001; 84484; 85025; 87086; 93005; 96360; 99284; A9270; J7040

== ENCOUNTER 2024-02-28 08:47 | Emergency (ER) | payer MEDICARE, BC, SELFPAY ==
[2024-02-28 09:08] VITALS: BP 125/68; PULSE 85; RESP 16; TEMP 37.1; O2SAT 98
--- NOTE | 2024-02-28 09:25 | ED.GENADULT ---
HPI - General Adult General Chief complaint: Urogenital-Female Stated complaint: urinary issue Source: patient Mode of arrival: ambulatory Limitations: no limitations History of Present Illness HPI narrative: Patient presents for evaluation of dysuria since 2229 last night. She denies any urinary frequency, urgency, hesitancy, hematuria, abdominal pain, low back pain, fever, chills, nausea, vomiting. She has had a urinary tract infection in the past and this feels similar. Previous urine culture on file here showed growth of E coli with susceptibility to multiple agents including Bactrim and cephalosporins. Related Data Home Medications Medication Instructions Recorded Confirmed losartan 50 mg tablet 50 mg PO QAM 02/13/21 02/28/24 simvastatin 10 mg tablet 10 mg PO DAILY 02/13/21 02/28/24 primidone 50 mg tablet 50 mg PO BID 03/26/22 02/28/24 hydrochlorothiazide 12.5 mg capsule 12.5 mg PO QAM 07/02/22 02/28/24 fluticasone propionate 50 1 spray intranasal DAILY PRN 09/09/22 02/28/24 mcg/actuation nasal Congestion spray,suspension cholecalciferol (vitamin D3) 1,250 1,250 mcg PO WEEKLY 02/24/23 02/28/24 mcg (50,000 unit) capsule ketoconazole 2 % topical cream See Rx Instructions .Route .COMPLEX 02/28/24 02/28/24 Allergies Allergy/AdvReac Type Severity Reaction Status Date / Time alendronate sodium Allergy Mild Chest Pain Verified 02/28/24 08:51 [From Fosamax] grass pollen Allergy Mild Congested Verified 02/28/24 08:51 Review of Systems Review of Systems: CONSTITUTIONAL: Denies fever, chills, or sweats. EYES: Denies visual changes, redness, or discharge. ENT: Denies rhinorrhea, congestion, sore throat, or otalgia. CARDIOVASCULAR: Denies chest pain, palpitations, or edema. RESPIRATORY: Denies cough or dyspnea. GASTROINTESTINAL: Denies abdominal pain, nausea, vomiting, or diarrhea. GENITOURINARY: Reports dysuria. Denies urinary frequency, urgency, hesitancy, hematuria SKIN: Denies rash or itching. MUSCULOSKELETAL: Denies back pain, joint pain, or myalgia. NEUROLOGIC: Denies headache, numbness, dizziness, or weakness. PSYCHIATRIC: Denies anxiety or depression. [facility] Past Medical History Medical History Arthritis of both knees History of cyst of breast 1979 Hyperlipidemia Hypertension Osteoporosis Scoliosis Tremor Surgical History Surgical History History of total left knee replacement (~03/03/23) History of total right knee replacement (~09/23/22) Family History Family History Daughter Malignant neoplastic disease Arthritis Son Kidney disease Sibling Malignant neoplastic disease Father Brain tumor, Onset Age: 63 Mother Hypertension Heart disease Malignant tumor of cervix Social History Social History Smoking status: Never smoker Alcohol intake: never Substance use: never Substance use type: does not use Lack of Transportation: No Lack of Food: Never True Current Housing: I Have Housing Concerned About Future Housing: No Difficulty Paying Gas/Electric Bills: No Difficulty Paying for Meds: No Currently Unemployed: No Education: High School Diploma/GED Difficulty w/ Childcare or Family Care: No Living arrangements: alone Additional living arrangements comments: SON LIVES WITH PATIENT Gender identity (if verbalized by the patient): Female Sexual Orientation (if Verbalized by the Patient): Straight or Heterosexual Spiritual care concerns: No Exam Narrative: GENERAL: Well-appearing, well-nourished, and in no acute distress. HEAD: Normocephalic, atraumatic. EYES: PERRLA and EOMI. ENT: Nares clear, no rhinorrhea or epistaxis. Mucous membranes moist. Oropharynx without tonsillar hypertrophy exudate or oth
== END 2024-02-28 09:29 | disposition home or self-care (01) ==
PROVIDERS: Emergency Provider Nurse Practitioner; PCP Family Medicine
DX: N39.0 Urinary tract infection, site not specified (principal); M17.0 Bilateral primary osteoarthritis of knee; E78.5 Hyperlipidemia, unspecified; I10 Essential (primary) hypertension; M81.0 Age-related osteoporosis without current pathological fracture; M41.9 Scoliosis, unspecified; Z96.653 Presence of artificial knee joint, bilateral
CPT/HCPCS: 81003; 87086; 99213; G0463

== ENCOUNTER 2024-03-29 10:06 | Outpatient (CLI) | payer MEDICARE, BC, SELFPAY ==
--- NOTE | 2024-03-29 11:00 | NEURO_ITS ---
Impression: # Complains of tremors and balance problems. On Primidone. # Subtle neuropathy. # Needle/EMG exam neurogenic distally. # Clinical correlation recommended. Nerve Conduction Studies Anti Sensory Summary Table Stim Site NR Peak (ms) P-T Amp (?V) Site1 Site2 Delta-P (ms) Dist (cm) Noman (m/s) Left Sup Fibular Anti Sensory (Ant Lat Mall) 14 cm 4.2 10.7 14 cm Ant Lat Mall 4.2 16.0 38 Right Sup Fibular Anti Sensory (Ant Lat Mall) 14 cm 3.8 6.0 14 cm Ant Lat Mall 3.8 16.0 42 Left Sural Anti Sensory (Lat Mall) Calf 4.0 5.6 Calf Lat Mall 4.0 16.0 40 Right Sural Anti Sensory (Lat Mall) Calf 3.7 6.9 Calf Lat Mall 3.7 16.0 43 Motor Summary Table Stim Site NR Onset (ms) O-P Amp (mV) Site1 Site2 Delta-0 (ms) Dist (cm) Noman (m/s) Left Peroneal Motor (Vastus Med) Ankle 4.1 2.3 Popit Ankle 8.1 38.0 47 Popit 12.2 1.3 Right Peroneal Motor (Vastus Med) Ankle 4.1 0.6 Popit Ankle 8.9 38.0 43 Popit 13.0 0.6 Left Tibial Motor (Abd Castillo Brev) Ankle 4.3 5.6 Knee Ankle 8.8 37.0 42 Knee 13.1 4.0 Right Tibial Motor (Abd Castillo Brev) Ankle 4.3 4.5 Knee Ankle 8.8 38.0 43 Knee 13.1 2.8 F Wave Studies NR F-Lat (ms) L-R F-Lat (ms) Left Peroneal (Mrkrs) (EDB) 51.50 Right Peroneal (Mrkrs) (EDB) DISPERSED RESPONSE NR Left Tibial (Mrkrs) (Abd Hallucis) 51.92 1.14 Right Tibial (Mrkrs) (Abd Hallucis) 50.78 1.14 EMG Side Muscle Nerve Root Ins Act Fibs Amp Dur Recrt Comment Right AntTibialis Dp Br Fibular L4-5 Nml Nml Nml Nml Nml Right Gastroc Tibial S1-2 Nml Nml Nml Nml Nml Right Fibularis Long Sup Br Fibular L5-S1 Nml Nml Nml Nml Nml Right Flex Dig Long Tibial L5-S2 Nml Nml Nml Nml Nml Right Ext Dig Brev Dp Br Fibular L5, S1 Nml Nml Incr >12ms +1 Left AntTibialis Dp Br Fibular L4-5 Nml Nml Nml Nml Nml Left Gastroc Tibial S1-2 Nml Nml Nml Nml Nml Left Fibularis Long Sup Br Fibular L5-S1 Nml Nml Nml Nml Nml Left Flex Dig Long Tibial L5-S2 Nml Nml Nml Nml Nml Left Ext Dig Brev Dp Br Fibular L5, S1 Nml Nml Incr >12ms +1 MTDD
== END 2024-03-29 10:07 | disposition home or self-care (01) ==
LOC: ANHNEURO 10:06
PROVIDERS: PCP Family Medicine
DX: G60.9 Hereditary and idiopathic neuropathy, unspecified (principal); G62.9 Polyneuropathy, unspecified
CPT/HCPCS: 95886; 95910

== ENCOUNTER 2024-08-14 08:28 | Inpatient (IN) | payer MEDICARE, BC, SELFPAY ==
[2024-08-14] VITALS (22 sets, daily range): BP systolic 125–212; BP diastolic 56–133; PULSE 35–97; RESP 12–26; TEMP 36.5–36.8; O2SAT 92–97; BMI 25.6; BMI 25.7
--- NOTE | ~2024-08-14 | XR_ITS ---
EXAMINATION: XR chest 2V DATE: 08/14/2024 09:19 INDICATION: Chest pain. Shortness of breath. TECHNIQUE: Frontal and lateral views of the chest were obtained. COMPARISON: Chest 2 views 03/26/2022, CT abdomen and pelvis 06/09/2015 FINDINGS: There is a diffuse interstitial pattern, consistent mild pulmonary edema. There are small p leural effusions. No pneumothorax. The heart size is normal. There is a moderate-sized hiatal hernia. IMPRESSION: 1. Mild pulmonary edema. 2. Small pleural effusions. 3. Moderate-sized hiatal hernia. Reviewed, dictated and finalized at location A.
--- NOTE | 2024-08-14 08:42 | ECG_ITS ---
Test Date: 2024-08-14 08:48:59 Measurements Intervals [place] Rate: 37 P: 0 WY: 0 QRS: 116 QRSD: 130 T: 55 QT: 486 QTc: 385 Interpretive Statements SINUS RHYTHM WITH COMPLETE HEART BLOCK SLOW JUNCTIONAL ESCAPE RHYTHM RIGHT AXIS DEVIATION RIGHT BUNDLE BRANCH BLOCK BASELINE ARTIFACT- I, III, AVR, AVL, AVF, V1-V2 ABNORMAL ECG No previous ECG available for comparison Electronically Signed On 08-14-2024 12:19:31 CDT by Humberto Aly D.O.
[2024-08-14 09:04] LABS: Basophils Percent Auto 0.2 % (0.2-1.2); Eosinophils Absolute Auto 0.2 K/mm3 (0-0.3); Eosinophils Percent Auto 1.8 % (0-4.4); Hematocrit 42.3 % (37.0-47.0); Hemoglobin 13.6 g/dL (12.0-15.0); Immature Granulocyte Absolute 0.02 K/mm3 (0.00-0.031); Immature Granulocyte Percent A 0.2 % (0-0.5); Lymphocytes Absolute Auto 1.48 K/mm3 (0.9-3.2); Lymphocytes Percent Auto 18.2 % (18.3-44.2); Mean Corpuscular HGB Conc 32.2 g/dl (32-36); Mean Corpuscular Hemoglobin 29.8 pg (26-34); Mean Corpuscular Volume 92.8 fl (80-100); Mean Platelet Volume 10.2 fl (7.4-10.4); Monocytes Absolute Auto 0.4 K/mm3 (0.1-0.6); Monocytes Percent Auto 4.7 % (2.6-8.5); Neutrophils Absolute Auto 6.1 K/mm3 (1.3-6.7); Neutrophils Percent Auto 74.9 % (45.5-73.1); Platelet Count Result 392 k/mm3 (150-375); Red Blood Count 4.56 M/mm3 (4.2-5.4); Red Cell Distribution Width 14.2 % (11.5-14.5); White Blood Count 8.1 K/mm3 (4.5-10.0)
[2024-08-14 09:21] LABS: Alanine Aminotransferase 22 U/L (6-35); Albumin Level 3.5 g/dL (3.5-5.1); Alkaline Phosphatase 108 U/L (38-126); Anion Gap 8 mmol/L (4-12); Aspartate Amino Transferase 32 U/L (14-36); Bilirubin,Total 0.4 mg/dL (0.2-1.3); Blood Urea Nitrogen 18 mg/dL (7-17); Calcium 8.3 mg/dL (8.4-10.2); Carbon Dioxide 20 mmol/L (22-30); Chloride 107 mmol/L (98-107); Estimated CRCL calculation 28 ml/min; Estimated Glomerular Filt Rate 59; Glucose 123 mg/dL (65-110); Potassium 4.6 mmol/L (3.4-5.0); Sodium 135 mmol/L (137-145)
[2024-08-14 10:25] LABS: Magnesium 2.2 mg/dL (1.6-2.3); Phosphorus 4.8 mg/dL (2.5-4.5)
[2024-08-14 10:27] LABS: INR 1.2; Prothrombin Time 15.1 Seconds (11.1-14.7)
[2024-08-14 10:28] LABS: Partial Thromboplastin Time 30.4 Seconds (22.3-36.8)
[2024-08-14 10:42] LABS: NT Pro B Type Natriuretic Pept 12000 pg/mL (19.9-100); Troponin I 0.275 ng/mL (0.000-0.034)
[2024-08-14 10:58] LABS: Influenza A QL RT-PCR Negative (Negative); Influenza B QL RT-PCR Negative (Negative); RSV RNA, RT-PCR Negative (Negative); SARS-CoV-2 RNA PCR Negative (Negative)
[2024-08-14 11:21] LABS: Add Urine Microscopic? YES; Appearance Urine Cloudy (Clear); Bacteria Urine 2+ /hpf; Bilirubin Urine 1+ (Negative); Blood Urine 3+ (Negative); Color Urine Dark Yellow (Yellow); Glucose Urine UA Negative (Negative); Ketones Urine Trace mg/dL (Negative); Leukocyte Esterase Ur Trace LEU/UL (Negative); Need Manual Microscopic Reviewed; Nitrate Urine Negative (Negative); Non Pathogenic Casts >20; Protein Urine 4+ mg/dL (Negative); RBC Urine 51-100 /hpf (0-2); Specific Grav Ur 1.039 (1.001-1.035); Squamous Epithelial Cell Urine Moderate /hpf (Few); WBC Urine 21-50 /hpf (0-3); pH Urine 5.5 (5.0-9.0)
[2024-08-14] MEDS: FUROSEMIDE INJ 40 MG/4 ML VIAL IV PUSH (11:31)
[2024-08-14] MEDS: HEPARIN SODIUM 5,000 UNITS/ML VIAL 3000 UNITS IV PUSH (11:35)
[2024-08-14] MEDS: HEPARIN SOD/D5W 100 UNITS/ML 25,000 UNITS/250 ML BAG 6 UNITS IV CONT (11:35)
--- NOTE | 2024-08-14 12:10 | ED.GENADULT ---
HPI - General Adult General Chief complaint: Shortness of Breath/Dyspnea Stated complaint: sob,tremors, bilateral leg swelling Time Seen by Provider: 08/14/24 08:55 History of Present Illness HPI narrative: This is an 88-year-old female presenting ED with chief complaint of shortness of breath. Patient says she has felt short of breath for months however starting is become significantly worse. She is at the point where just washing her dishes makes her winded and forces her to sit down. She feels weak and fatigued in general. Patient denies fevers chills productive cough chest pain abdominal pain urinary symptoms. She does have some nausea but no vomiting. She was told several months ago by her primary care physician that she needed a pacemaker but she never heard anything else further. Related Data Home Medications Medication Instructions Recorded Confirmed losartan 50 mg tablet 50 mg PO QAM 02/13/21 02/28/24 simvastatin 10 mg tablet 10 mg PO DAILY 02/13/21 02/28/24 primidone 50 mg tablet 50 mg PO BID 03/26/22 02/28/24 hydrochlorothiazide 12.5 mg capsule 12.5 mg PO QAM 07/02/22 02/28/24 fluticasone propionate 50 1 spray intranasal DAILY PRN 09/09/22 02/28/24 mcg/actuation nasal Congestion spray,suspension cholecalciferol (vitamin D3) 1,250 1,250 mcg PO WEEKLY 02/24/23 02/28/24 mcg (50,000 unit) capsule ketoconazole 2 % topical cream See Rx Instructions .Route .COMPLEX 02/28/24 02/28/24 Allergies Allergy/AdvReac Type Severity Reaction Status Date / Time alendronate sodium Allergy Mild Chest Pain Verified 08/14/24 08:57 [From Fosamax] grass pollen Allergy Mild Congested Verified 08/14/24 08:57 [facility] Past Medical History Medical History Arthritis of both knees History of cyst of breast 1979 Hyperlipidemia Hypertension Osteoporosis Scoliosis Tremor Surgical History Surgical History History of total left knee replacement (~03/03/23) History of total right knee replacement (~09/23/22) Family History Family History Daughter Malignant neoplastic disease Arthritis Son Kidney disease Sibling Malignant neoplastic disease Father Brain tumor, Onset Age: 63 Mother Hypertension Heart disease Malignant tumor of cervix Social History Social History Smoking status: Never smoker Alcohol intake: never Substance use: never Substance use type: does not use Lack of Transportation: No Lack of Food: Never True Current Housing: I Have Housing Concerned About Future Housing: No Difficulty Paying Gas/Electric Bills: No Difficulty Paying for Meds: No Currently Unemployed: No Education: High School Diploma/GED Difficulty w/ Childcare or Family Care: No Living arrangements: alone Additional living arrangements comments: SON LIVES WITH PATIENT Gender identity (if verbalized by the patient): Female Sexual Orientation (if Verbalized by the Patient): Straight or Heterosexual Spiritual care concerns: No Exam Narrative: APPEARANCE: No apparent distress. Head: atraumatic. EYES: EOMI, NOSE: Atraumatic NECK: Trachea midline RESPIRATORY: No increased rate of breathing, bibasilar crackles CARDIOVASCULAR: RRR, no peripheral edema ABDOMINAL: Non-distended soft nontender MUSCULOSKELETAl: No obvious deformities NEURO: Alert. Moving 4/4 extremities SKIN:: Warm, dry. Normal color PSYCHIATRIC: Normal affect Course Vital Signs Vital signs: Vital Signs Temperature 97.7 F 08/14/24 08:31 Pulse Rate 36 L 08/14/24 08:31 Respiratory Rate 20 08/14/24 08:31 Blood Pressure 160/80 H 08/14/24 08:31 Pulse Oximetry 97 08/14/24 08:31 Oxygen Delivery Room Air 08/14/24 08:31 Temperature 97.7 F 08/14/24 08:31 Pulse Rate 56 L
--- NOTE | 2024-08-14 12:22 | PM.CNCAR ---
Assessment and Plan Assessment and plan (1) Complete heart block: Code(s): I44.2 - Atrioventricular block, complete Status: Acute Plan This is an 88-year-old lady who appears to be presenting with symptomatic bradycardia with acquired complete heart block. It is interesting that she remembers being told by her physician several months ago that she might require a pacemaker implant. I do not have any records of that encounter a wire that comment was made. She takes no medication that would affect her AV node physiology and she therefore is a candidate for pacemaker implantation. Her troponin levels were slightly elevated in the emergency room. I do not have a good reason for why they were sampled but because of that she has been placed on a heparin infusion. I would recommend planning for pacemaker implant tomorrow and stopping the heparin infusion in the morning. There are quite a few cases on the schedule for tomorrow so I do not anticipate this procedure occurring until later in the day. Since she is not presenting with syncope and is not having any pauses at this time I do not believe it is necessary to place a temporary transvenous pacemaker. Rajiv Lange MD [facility] History of Present Illness History of Present Illness Consult date/time: 08/14/24 12:22 Reason For Visit: Complete heart block Narrative: This is an 88-year-old woman I am seeing in the emergency room because of complete heart block. She is unknown to me prior to this consultation I was notified a short time ago by the ER physician that she had presented there with a chief complaint of increasing shortness of breath and some lower extremity edema of recent onset. She says she is not known to have any cardiac problems prior to this. She interestingly provides the history that she says her PCP who is not here at [facility] told her several months ago that he thought she would require a cardiac pacemaker. I have no other information about that her why that comment might have been made but she says that she was not referred to a coal loader. She has not had any syncopal episodes or presyncope. She did have some significant positional lightheadedness 2 or 3 years ago that was felt to be the result of volume depletion at which time a diuretic she was taking had been discontinued. she provides history of orthostatic problems at that time. She does not have any chest pain orthopnea or PND no palpitations or other cardiac symptoms. Her electrocardiogram shows sinus rhythm with complete heart block right bundle branch block and right superior axis deviation. According to the records her right bundle branch block is old. She did have echocardiogram done in this hospital to investigate symptoms of lightheadedness in 2021 that showed no significant valvular disease vigorous left ventricular systolic function. She is a lady for 25 years lives in her own home and conduct her activities independently. Review of Systems Constitutional: Constitutional: Reports fatigue and Reports lethargy Eyes: Eyes: Reports no additional eye complaints ENT: Reports system reviewed and no additional complaints, except as documented Cardiovascular: Cardiovascular: Reports as per HPI Respiratory: Respiratory: Reports dyspnea on exertion Gastrointestinal: Gastrointestinal: Reports no additional gastrointestinal complaints Musculoskeletal: Musculoskeletal: Reports back pain Integumentary/Breasts: Skin/Breast: Reports system reviewed and no additional complaints, except as docu Neurologic: Comments: Alert and oriented x3 Endocrine: Endocrine: Reports no additional endocrine complaints Hematologic/Lymphatic: Hematologic/Lymphatic: Reports no additional hematologic/lymphatic complaints Allergic/Immunologic: Allergic/Immunologic: Reports no additional allergic/immunologic complaints [facility] Past Medical History Medical History (Reviewed 08/14/24 @ 12:11
[2024-08-14] MEDS: ONDANSETRON INJ 4 MG/2 ML VIAL IV PUSH (12:32)
--- NOTE | 2024-08-14 12:51 | PM.IMHP ---
H&P: HPI History of Present Illness Date/Time: 08/14/24 12:51 Chief Complaint: Shortness of breath/dyspnea Narrative: This is an 88-year-old female with a significant past medical history of hyperlipidemia, hypertension, osteoporosis scoliosis, arthritis who presents with shortness of breath and dyspnea. Patient reports the following history of presenting illness. Patient states that she started feeling weak on after doing a few things around the house. She stated that she felt short of breath and nauseated but did not vomit. She rested the rest of and then on Thursday she went to the grocery store and the same thing happened. She felt weak, SOB, and nauseated. She continued to have the same symptoms on Thursday and then she spoke with her children and decided to come to the hospital for further evaluation of her symptoms. Patient denies any fever, chills, vomiting, abdominal pain, chest pain. Patient endorses shortness of breath with exertion, extreme fatigue, nausea and overall not feeling well. She states she has not been able to sleep for the last few nights and has sat up in a chair to rest most nights. Workup in the hospital included a chest x-ray which showed mild pulmonary edema, small pleural effusion, moderate sized hiatal hernia. Initial labs shown a normal white blood count of 8.1, INR 1.2, sodium 135, bicarb 20, troponin 0.275, proBNP 67316. UA was obtained which showed cloudy appearance, urine specific gravity of 1.039, 4+ urine protein, trace urine ketone, 3+ urine blood, 1+ urine bili, trace leukocytes, 51-100 urine RBC, 21-50 urine WBC, 2+ urine bacteria, with moderate urine squamous epithelial cells present. Respiratory panel was obtained and was negative for influenza a and B, RSV, COVID. Urine culture was obtained and pending. EKG shown sinus rhythm with complete heart block with a heart rate of 37, right axis deviation, right bundle branch block. While in the ED patient received 40 mg IV push of Lasix, Rocephin, Zofran, and started on heparin infusion. Cardiology was consulted and plans to take patient for pacemaker implant. Review of Systems Review of Systems: All systems reviewed & are unremarkable except as noted in HPI and below Constitutional: Constitutional: Reports as per HPI and Reports no additional constitutional complaints Eyes: Eyes: Reports as per HPI and Reports no additional eye complaints ENT: Reports system reviewed and no additional complaints, except as documented and Reports as per HPI Cardiovascular: Cardiovascular: Reports as per HPI and Reports no additional cardiovascular complaints Respiratory: Respiratory: Reports as per HPI and Reports no additional respiratory complaints Gastrointestinal: Gastrointestinal: Reports as per HPI and Reports no additional gastrointestinal complaints Genitourinary: Genitourinary: Reports no additional female genitourinary complaints and Reports as per HPI Musculoskeletal: Musculoskeletal: Reports no additional musculoskeletal complaints and Reports as per HPI Integumentary/Breasts: Skin/Breast: Reports system reviewed and no additional complaints, except as docu and Reports as per HPI Neurologic: Reports system reviewed and no additional complaints, except as documented and Reports as per HPI Psychiatric: Psychiatric: Reports no additional psychiatric complaints and Reports as per HPI [facility] Past Medical History Medical History (Updated 08/14/24 @ 13:50 by Manju Thomas APRN) Arthritis of both knees CHF (congestive heart failure) Chronic back pain History of cyst of breast 1978 Hyperlipidemia Hypertension Kidney stones Osteoporosis Peripheral neuropathy Pulmonary hypertension Scoliosis Tremor Surgical History Surgical History History of total left knee replacement (~03/03/23) History of total right knee replacement (~09/23/22) Family History Family History (Reviewed 07/25
--- NOTE | 2024-08-14 13:34 | ECG_ITS ---
Test Date: 2024-08-14 13:40:16 Measurements Intervals [place] Rate: 38 P: 0 WY: 0 QRS: -29 QRSD: 133 T: 109 QT: 511 QTc: 407 Interpretive Statements SINUS RHYTHM WITH COMPLETE HEART BLOCK SLOW JUNCTIONAL ESCAPE RHYTHM LEFT BUNDLE BRANCH BLOCK BASELINE WANDER- V5 ABNORMAL ECG Compared to ECG 08/14/2024 08:48:59 RIGHT BUNDLE BRANCH BLOCK CHANGES TO LEFT BUNDLE BRANCH BLOCK Electronically Signed On 08-14-2024 13:53:36 CDT by Humberto Aly D.O.
--- NOTE | 2024-08-14 14:26 | ECG_ITS ---
Test Date: 2024-08-14 14:32:15 Measurements Intervals [place] Rate: 64 P: 0 [place]: 0 QRS: -29 QRSD: 134 T: 126 QT: 471 QTc: 487 Interpretive Statements SINUS RHYTHM WITH HIGH GRADE AV BLOCK SLOW JUNCTIONAL ESCAPE RHYTHM WITH VENTRICULAR TRIPLET AND EPISODES OF VENTRICULAR TACHYCARDIA LEFT BUNDLE BRANCH BLOCK BASELINE ARTIFACT- I, II, III, AVR, AVL, AVF, V1-V6 ABNORMAL ECG Compared to ECG 08/14/2024 13:40:16 VENTRICULAR YASEMIN NOW PRESENT Electronically Signed On 08-14-2024 19:39:36 CDT by Humberto Aly D.O.
--- NOTE | 2024-08-14 14:26 | ADMGEN ---
This patient, Joann Mckinley, was admitted to IMU Room 204-01. Patient/family oriented to hospital policies and general routines including ID bracelet, bed and alarms, visiting hours, pain management, procedures, bathroom and other care routines, personal items, smoking policy, room service/diet, and visiting hours. Information on how to activate the Rapid Response Team has been discussed. Patient/Family are encouraged to report perceived risks to care and to ask questions if they do not understand what they are told or what they should do.
[2024-08-14] MEDS: AMIODARONE 360 MG/D5W 200 ML 360 MG/200 ML BAG 33.33 MG IV CONT (15:24)
[2024-08-14 15:28] LABS: Basophils Percent Auto 0.3 % (0.2-1.2); Eosinophils Absolute Auto 0.1 K/mm3 (0-0.3); Eosinophils Percent Auto 1.7 % (0-4.4); Hematocrit 39.5 % (37.0-47.0); Hemoglobin 12.6 g/dL (12.0-15.0); Immature Granulocyte Absolute 0.03 K/mm3 (0.00-0.031); Immature Granulocyte Percent A 0.4 % (0-0.5); Lymphocytes Absolute Auto 1.78 K/mm3 (0.9-3.2); Lymphocytes Percent Auto 24.7 % (18.3-44.2); Mean Corpuscular HGB Conc 31.9 g/dl (32-36); Mean Corpuscular Hemoglobin 29.9 pg (26-34); Mean Corpuscular Volume 93.8 fl (80-100); Mean Platelet Volume 10.1 fl (7.4-10.4); Monocytes Absolute Auto 0.4 K/mm3 (0.1-0.6); Neutrophils Absolute Auto 4.8 K/mm3 (1.3-6.7); Neutrophils Percent Auto 66.9 % (45.5-73.1); Platelet Count Result 358 k/mm3 (150-375); Red Blood Count 4.21 M/mm3 (4.2-5.4); Red Cell Distribution Width 14.1 % (11.5-14.5); White Blood Count 7.2 K/mm3 (4.5-10.0)
--- NOTE | 2024-08-14 17:53 | PC.NURSE ---
Updated JENIFER Hernandez, on plan of care and patient condition.
[2024-08-14 18:20] LABS: INR 1.2; Prothrombin Time 15.8 Seconds (11.1-14.7)
[2024-08-14 18:21] LABS: Partial Thromboplastin Time 38.8 Seconds (22.3-36.8)
[2024-08-14] MEDS: HEPARIN SODIUM 5,000 UNITS/ML VIAL 4000 UNITS IV PUSH (18:55)
[2024-08-14] MEDS: AMIODARONE 360 MG/D5W 200 ML 360 MG/200 ML BAG 16.67 MG IV CONT (20:55)
[2024-08-14] MEDS: hydrALAZINE HCL 20 MG/ML VIAL 5 MG IV PUSH (21:45)
[2024-08-15] VITALS (7 sets, daily range): BP systolic 0–195; BP diastolic 0–120; PULSE 0–91; RESP 11–17; TEMP 36.7–36.9; O2SAT 90–95
[2024-08-15] MEDS: DEXTROSE 5%/0.9% SOD CHL 1,000 ML 50 ML IV CONT (00:02)
[2024-08-15 01:19] LABS: Partial Thromboplastin Time 92.9 Seconds (22.3-36.8)
[2024-08-15 07:22] LABS: Basophils Percent Auto 0.3 % (0.2-1.2); Eosinophils Absolute Auto 0.1 K/mm3 (0-0.3); Eosinophils Percent Auto 1.4 % (0-4.4); Hematocrit 38.3 % (37.0-47.0); Hemoglobin 12.4 g/dL (12.0-15.0); Immature Granulocyte Absolute 0.02 K/mm3 (0.00-0.031); Immature Granulocyte Percent A 0.3 % (0-0.5); Lymphocytes Absolute Auto 1.64 K/mm3 (0.9-3.2); Lymphocytes Percent Auto 21.1 % (18.3-44.2); Mean Corpuscular HGB Conc 32.4 g/dl (32-36); Mean Corpuscular Hemoglobin 29.6 pg (26-34); Mean Corpuscular Volume 91.4 fl (80-100); Monocytes Absolute Auto 0.4 K/mm3 (0.1-0.6); Monocytes Percent Auto 5.6 % (2.6-8.5); Neutrophils Absolute Auto 5.6 K/mm3 (1.3-6.7); Neutrophils Percent Auto 71.3 % (45.5-73.1); Platelet Count Result 343 k/mm3 (150-375); Red Blood Count 4.19 M/mm3 (4.2-5.4); Red Cell Distribution Width 14.1 % (11.5-14.5); White Blood Count 7.8 K/mm3 (4.5-10.0)
[2024-08-15 07:34] LABS: Partial Thromboplastin Time 52.6 Seconds (22.3-36.8)
[2024-08-15 07:35] LABS: Alanine Aminotransferase 16 U/L (6-35); Albumin Level 2.9 g/dL (3.5-5.1); Alkaline Phosphatase 95 U/L (38-126); Anion Gap 9 mmol/L (4-12); Aspartate Amino Transferase 24 U/L (14-36); Bilirubin,Total 0.2 mg/dL (0.2-1.3); Blood Urea Nitrogen 19 mg/dL (7-17); Calcium 8.1 mg/dL (8.4-10.2); Carbon Dioxide 22 mmol/L (22-30); Chloride 103 mmol/L (98-107); Estimated Glomerular Filt Rate 47; Glucose 131 mg/dL (65-110); Potassium 4.1 mmol/L (3.4-5.0); Sodium 134 mmol/L (137-145)
[2024-08-15] MEDS: HEPARIN SODIUM 5,000 UNITS/ML VIAL 4000 UNITS IV PUSH (07:59)
[2024-08-15] MEDS: ONDANSETRON INJ 4 MG/2 ML VIAL IV PUSH (07:59)
[2024-08-15] MEDS: AMIODARONE 360 MG/D5W 200 ML 360 MG/200 ML BAG 16.67 MG IV CONT (08:00)
--- NOTE | 2024-08-15 09:40 | PC.NURSE ---
Patient monitor alarmed vtach, this RN witness sustained vtach and immediately went to patient bedside, patient unresponsive and dusky with intermittent agonal breaths, quickly converted to v fib and called for assistance in notifying POA to confirm patient's DNR wishes. Mary (POA) confirmed she is to remain DNR as those are her wishes and that she will notify family members. Vfib rhythm quickly turned into asystole and TOD was confirmed by two RNs @ [id number]. MTS/Blanket Maker/Hospitalist/Global Process Owner notified of patient expiration. Hospitality cart requested from dietary. Mary LAMAR at bedside @ [phone]
--- NOTE | 2024-08-15 09:58 | PM.DS ---
DS: Admitting Diagnosis Discharge Date 08/15/24 Admitting Diagnosis 3rd degree heart block CHF Elevated Troponin Abnormal finding on urinalysis hyperlipidemia hypertension Tremor DS: Summary Hospital Course Reason for hospitalization: 3rd degree heart block CHF Elevated Troponin Abnormal finding on urinalysis hyperlipidemia hypertension Tremor Hospital Course: Final diagnosis: 3rd degree heart block, Combined systolic and diastolic heart failure, Time Spent with Patient Time attestation: Total time spent providing and/or coordinating discharge services: DS: Data Data Completed and Pending Labs on day of discharge: Labs from last 24 hours 08/15/24 08/15/24 08/14/24 07:14 01:02 17:53 WBC 7.8 RBC 4.19 L Hgb 12.4 Hct 38.3 MCV 91.4 MCH 29.6 MCHC 32.4 RDW 14.1 Plt Count 343 MPV 10.0 Immature Gran % (Auto) 0.3 Neut % (Auto) 71.3 Lymph % (Auto) 21.1 Baxter % (Auto) 5.6 Eos % (Auto) 1.4 Baso % (Auto) 0.3 Lymph # (Auto) 1.64 Baxter # (Auto) 0.4 Eos # (Auto) 0.1 Baso # (Auto) 0.0 Abs Immat Gran (auto) 0.02 Absolute Neuts (auto) 5.6 Absolute Nucleated RBC 0.000 Nucleated RBC % 0.0 PT 15.8 H INR 1.2 APTT 52.6 H 92.9 H 38.8 H Sodium 134 L Potassium 4.1 Chloride 103 Carbon Dioxide 22 Anion Gap 9 BUN 19 H Creatinine 1.10 H Estim Creat Clear Calc Not Reportable Estimated GFR 47 L Glucose 131 H Calcium 8.1 L Phosphorus Magnesium 2.0 Total Bilirubin 0.2 AST 24 ALT 16 Alkaline Phosphatase 95 Troponin I NT-Pro-B Natriuret Pep Total Protein 6.0 L Albumin 2.9 L Urine Color Urine Appearance Urine pH Ur Specific Roslyn Urine Protein Urine Glucose (UA) Urine Ketones Ur Blood (Man) Urine Nitrate Urine Bilirubin Urine Urobilinogen Add Ur Microanalysis Leukocyte Esterase Rfl Urine RBC Urine WBC Ur Squamous Epith Cells Urine Bacteria Urine Casts Influenza A (RT-PCR) Influenza B (RT-PCR) RSV (RT-PCR) SARS-CoV-2 RNA (RT-PCR) 08/14/24 08/14/24 08/14/24 15:23 13:48 11:08 WBC 7.2 RBC 4.21 Hgb 12.6 Hct 39.5 MCV 93.8 MCH 29.9 MCHC 31.9 L RDW 14.1 Plt Count 358 MPV 10.1 Immature Gran % (Auto) 0.4 Neut % (Auto) 66.9 Lymph % (Auto) 24.7 Baxter % (Auto) 6.0 Eos % (Auto) 1.7 Baso % (Auto) 0.3 Lymph # (Auto) 1.78 Baxter # (Auto) 0.4 Eos # (Auto) 0.1 Baso # (Auto) 0.0 Abs Immat Gran (auto) 0.03 Absolute Neuts (auto) 4.8 Absolute Nucleated RBC 0.000 Nucleated RBC % 0.0 PT INR APTT Sodium Potassium Chloride Carbon Dioxide Anion Gap BUN Creatinine Estim Creat Clear Calc Estimated GFR Glucose Calcium Phosphorus Magnesium Total Bilirubin AST ALT Alkaline Phosphatase Troponin I 0.400 H* D NT-Pro-B Natriuret Pep Total Protein Albumin Urine Color Dark yellow Urine Appearance Cloudy H Urine pH 5.5 Ur Specific Roslyn 1.039 H Urine Protein 4+ H Urine Glucose (UA) Negative Urine Ketones Trace H Ur Blood (Man) 3+ H Urine Nitrate Negative Urine Bilirubin 1+ H Urine Urobilinogen 1.0 Add Ur Microanalysis Reviewed Leukocyte Esterase Rfl Trace H Urine RBC 51-100 H Urine WBC 21-50 H Ur Squamous Epith Cells Moderate Urine Bacteria 2+ H Urine Casts >20 Influenza A (RT-PCR) Influenza B (RT-PCR) RSV (RT-PCR) SARS-CoV-2 RNA (RT-PCR) 08/14/24 10:09 WBC RBC Hgb Hct MCV MCH MCHC RDW Plt Count MPV Immature Gran % (Auto) Neut % (Auto) Lymph % (Auto) Baxter % (Auto) Eos % (Auto) Baso % (Auto) Lymph # (Auto) Baxter # (Auto) Eos # (Auto) Baso # (Auto) Abs Immat Gran (auto) Absolute Neuts (auto) Absolute Nucleated RBC Nucleated RBC % PT 15.1 H INR 1
--- NOTE | 2024-08-15 10:05 | PM.DDS ---
Discharge Summary Date and Time Date of : 08/15/24 Time of : 09:35 Provider Pronounced By: 2 RNs Name of First RN That Pronounced: Kellie White Name of Second RN That Pronounced: Luana Schultz Probable Cause of Probable Cause of : 3rd degree heart block Combined systolic and diastolic congestive heart failure NSTEMI Summary Hospital Course: This is an 88-year-old female with a significant past medical history of hyperlipidemia, hypertension, osteoporosis scoliosis, arthritis who presents with shortness of breath and dyspnea. Patient reports the following history of presenting illness. Patient states that she started feeling weak on after doing a few things around the house. She stated that she felt short of breath and nauseated but did not vomit. She rested the rest of and then on Thursday she went to the grocery store and the same thing happened. She felt weak, SOB, and nauseated. She continued to have the same symptoms on Thursday and then she spoke with her children and decided to come to the hospital for further evaluation of her symptoms. Patient denies any fever, chills, vomiting, abdominal pain, chest pain. Patient endorses shortness of breath with exertion, extreme fatigue, nausea and overall not feeling well. She states she has not been able to sleep for the last few nights and has sat up in a chair to rest most nights. Workup in the hospital included a chest x-ray which showed mild pulmonary edema, small pleural effusion, moderate sized hiatal hernia. Initial labs shown a normal white blood count of 8.1, INR 1.2, sodium 135, bicarb 20, troponin 0.275, proBNP 14775. UA was obtained which showed cloudy appearance, urine specific gravity of 1.039, 4+ urine protein, trace urine ketone, 3+ urine blood, 1+ urine bili, trace leukocytes, 51-100 urine RBC, 21-50 urine WBC, 2+ urine bacteria, with moderate urine squamous epithelial cells present. Respiratory panel was obtained and was negative for influenza a and B, RSV, COVID. Urine culture was obtained and pending. EKG shown sinus rhythm with complete heart block with a heart rate of 37, right axis deviation, right bundle branch block. While in the ED patient received 40 mg IV push of Lasix, Rocephin, Zofran, and started on heparin infusion. Cardiology was consulted and stated patient did not need transvenous pacing and would take her for permanent pacemaker. However after admission to IMU patient was noted to have runs of V tach on the monitor and patient was placed in ICU as precautionary with IMU status. Nursing called me last night to notify me of the runs of V tach. Her magnesium level was 2.2 at that time. I instructed nursing to call Dr. Dickey (Enrollment Representative) and inform him of the V tach as she will likely need transvenous pacing. When I came in this morning patient stated she did not sleep and felt nauseated the entire night, not much different than her presenting symptoms. Patient was found to be on Amiodarone infusion per Cardiology. Plan was for her to get pacemaker this afternoon however nursing called me at 0940 and informed me that the patient went into V fib and as she was already a DNR. Time of was reported to be 0935. Family was there at the bedside. Final diagnosis: 3rd degree heart block, combined diastolic and systolic congestive heart failure, NSTEMI Additional Data Confirmation of as documented by pronouncing clinician: Palpable Pulses, Response to Stimuli, Heart Tones and Breath Sounds Family: at bedside Name of Provider Notified: Manju Thomas NP with hospitalist service, Dr. Lange with Cardiology Time Provider Notified: 09:40 Was code activated?: No (Patient was DNR/DNI) Provider Requests Autopsy: No Family Requests Autopsy: No [employer] Consultant Notified: Yes Advance directives: Yes (DNR/DNI) Hospice patient?: No
== END 2024-08-15 09:35 | disposition expired ==
LOC: ANHED 12:30 → ANHIMU 13:30 → ANHICU 14:50
PROVIDERS: Admitting Provider Internal Medicine; Emergency Provider Emergency Medicine; PCP Family Medicine; Visit Provider Nurse Practitioner Acute Care
DX: I21.4 Non-ST elevation (NSTEMI) myocardial infarction (principal); I50.43 Acute on chronic combined systolic (congestive) and diastolic (congestive) heart failure; I44.2 Atrioventricular block, complete; N39.0 Urinary tract infection, site not specified; I47.20 Ventricular tachycardia, unspecified; I49.01 Ventricular fibrillation; I11.0 Hypertensive heart disease with heart failure; I27.20 Pulmonary hypertension, unspecified; E78.5 Hyperlipidemia, unspecified; M81.0 Age-related osteoporosis without current pathological fracture; M41.9 Scoliosis, unspecified; M54.9 Dorsalgia, unspecified; G89.29 Other chronic pain; G62.9 Polyneuropathy, unspecified; R25.1 Tremor, unspecified; Z20.822 Contact with and (suspected) exposure to COVID-19; Z96.653 Presence of artificial knee joint, bilateral; Z79.82 Long term (current) use of aspirin
CPT/HCPCS: 36415; 71046; 80053; 81001; 83735; 83880; 84100; 84484; 85025; 85610; 85730; 87086; 87637; 93005; 96365; 96367; 96375; 99285; J0282; J0360; J0696; J1644; J1940; J2405; J7042